=== PATIENT | female | born 1975 | race Two or more races ===

== ENCOUNTER 2016-11-01 20:33 | Emergency (ER) | payer SELFPAY ==
[2016-11-01] MEDS ORDERED: KETOROLAC TROMETHAMINE 60 MG/2 ML SDV IM ONE (20:52)
[2016-11-01] MEDS ORDERED: OXYCODONE-ACETAMINOPHEN 5-325 MG TABLET PO ONE (21:08)
--- NOTE | 2016-11-01 21:10 | ER Document Report ---
ED General - General Chief Complaint: Abdominal Pain Stated Complaint: ABDOMINAL PAIN Notes: Patient is a 41-year-old female with past medical history of chronic abdominal pain secondary to endometriosis who presents with requests for pain control. Patient states that she has daily lower abdominal pain that is unchanged today. States that it got worse over the last 3 days but admits that this is a typical episode of abdominal pain for her. She does describe as a cramping, stabbing pain in the lower abdomen. She has been trying Tylenol and ibuprofen without improvement of the pain. Nothing worsens the pain. She denies any associated fever, nausea, vomiting, diarrhea, vaginal bleeding or discharge. States she normally follows with Dr. Casey [employer] regarding her chronic endometriosis and that hormone therapy has not resolved her symptoms. States that she normally takes Percocet or [place] for this pain and could not get anymore because her doctors offices close as it is a weekend. Review of the [place] controlled substance database does show the patient regularly receives prescriptions for both narcotic medications as well as Xanax. TRAVEL OUTSIDE OF THE [place] IN LAST 30 DAYS: No - Related Data Allergies/Adverse Reactions: prednisone Allergy (Verified 11/01/16 20:36) Tachycardia Past Medical History - General Information source: Patient - Social History Smoking Status: Never Smoker Frequency of alcohol use: None Drug Abuse: None Lives with: Spouse/Significant other Family History: Arthritis, Hypertension, Malignancy Patient has suicidal ideation: No Patient has homicidal ideation: No - Past Medical History Cardiac Medical History: Denies: Hx Coronary Artery Disease, Hx Heart Attack, Hx Hypertension Pulmonary Medical History: Reports: Hx Pneumonia - CHILD Denies: Hx Asthma, Hx Bronchitis, Hx COPD Neurological Medical History: Denies: Hx Cerebrovascular Accident, Hx Seizures Endocrine Medical History: Reports: Hx Diabetes Mellitus Type 2 Renal/ Medical History: Reports: Hx Ovarian Cysts Musculoskeltal Medical History: Denies Hx Arthritis Psychiatric Medical History: Reports: Hx Anxiety Past Surgical History: Reports: Hx Gynecologic Surgery - Cyst from ovary removed twice - Immunizations Immunizations up to date: Yes Hx Diphtheria, Pertussis, Tetanus Vaccination: Yes Review of Systems - Review of Systems Notes: Constitutional: Negative for fever. HENT: Negative for sore throat. Eyes: Negative for visual changes. Cardiovascular: Negative for chest pain. Respiratory: Negative for shortness of breath. Gastrointestinal: Positive for abdominal pain, negative for vomiting or diarrhea Genitourinary: Negative for dysuria. Musculoskeletal: Negative for back pain. Skin: Negative for rash. Neurological: Negative for headaches, weakness or numbness. 10 point ROS negative except as marked above and in HPI. Physical Exam - Vital signs Vitals: Temp Pulse Resp BP Pulse Ox 97.6 F 88 18 126/63 H 96 11/01/16 20:42 11/01/16 20:42 11/01/16 20:42 11/01/16 20:42 11/01/16 20:42 Interpretation: Normal Notes: PHYSICAL EXAMINATION: GENERAL: Well-appearing, well-nourished and in no acute distress. HEAD: Atraumatic, normocephalic. EYES: Pupils equal round and reactive to light, extraocular movements intact, sclera anicteric, conjunctiva are normal. ENT: nares patent, oropharynx clear without exudates. Moist mucous membranes. NECK: Normal range of motion, supple without lymphadenopathy LUNGS: Breath sounds clear to auscultation bilaterally and equal. No wheezes rales or rhonchi. HEART: Regular rate and rhythm without murmurs ABDOMEN: Soft, nontender, normoactive bowel sounds. No guarding, no rebound. No masses appreciated. EXTREMITIES: Normal range of motion, no pitting or edema. No cyanosis. NEUROLOGICAL: No focal neurological deficits. Moves all extremities spontaneously and on command. PSYCH: Normal mood, normal affect. SKIN: Warm, Dry, normal turgor, no rashes or lesions noted. Course - Re-evaluation Re-evalutation: 11/01/16 22:52 Patient presents with chronic unchanged abdominal pain. Patient admits that she has daily abdominal pain and that this is no different than prior episodes. There is no focal tenderness on examination. Vitals are within normal limits. No constitutional symptoms. Patient is requesting narcotic pain medications for her chronic pain. I do not believe based on exam and history that any labs or imaging are indicated as patient herself admits that there is nothing new or different about this pain today versus the last several years. I do not suspect acute appendicitis, ovarian torsion, tubo-ovarian abscess, bowel obstruction, mesenteric ischemia, or acute cholecystitis based on exam and history. I've inform the patient about our chronic pain policy in the emergency department and encouraged her to follow-up with her primary care physician for her pain control needs. At this time will discharge with return precautions and follow-up recommendations. Verbal discharge instructions given a the bedside and opportunity for questions given. Medication warnings reviewed. Patient is in agreement with this plan and has verbalized understanding of return precautions and the need for primary care follow-up in the next 24-72 hours. - Vital Signs Vital signs: Temp Pulse Resp BP Pulse Ox 97.5 F 80 14 122/74 96 11/01/16 21:31 11/01/16 21:31 11/01/16 21:31 11/01/16 21:31 11/01/16 21:31 Discharge - Discharge Clinical Impression: Chronic abdominal pain Condition: Good Disposition: HOME, SELF-CARE Additional Instructions: You have been seen in the Emergency Department (ED) for abdominal pain. Please follow up with your doctor as soon as possible regarding today's emergent visit and the symptoms that are bothering you. Return to the ED if your abdominal pain worsens or fails to improve, you develop bloody vomiting, bloody diarrhea, you are unable to tolerate fluids due to vomiting, fever greater than 101, or other symptoms that concern you. Chronic Pain Control Stress, inactivity, and depression make pain more severe regardless of the cause of the pain. Stress and poor physical condition can cause pain such as headaches and backache. Relaxation: Rest in a quiet place with your eyes closed for 20 minutes twice daily. Concentrate on a pleasant image, or simply "feel" your breathing. Clear your mind. Stress management: Deal with your "stressors." Either take action, or eliminate the stressor from your life. Don't let things hang over you. Accept those things you can't change. Nutrition: Eat small, balanced meals -- don't skip, don't overeat. Meals should be high-carbohydrate, low-sugar, low-fat. Exercise: Exercise helps painful conditions and eases stress. Get 30 minutes of moderate exercise, five days a week. Do an activity that does not flare your pain. Precautions: Pain which continues to disrupt daily activities, or which changes in nature, requires a medical evaluation. Pain Clinic referral is available. We do not manage chronic pain in the Emergency Department. 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 We do not provide repeated medication management of chronic painful conditions. If you wish, we can provide the name of local pain management physicians. Referrals: TAQUERIA GATES MD [Primary Care Provider] - Follow up as needed
[2016-11-01 21:37] VITALS: BP 122/74
== END 2016-11-01 21:40 | disposition home or self-care (01) ==
LOC: ER 20:33
DX: G89.29 Other chronic pain (principal); R10.9 Unspecified abdominal pain; E11.9 Type 2 diabetes mellitus without complications
CPT/HCPCS: 99284; 96372; J1885

== ENCOUNTER 2016-11-16 11:40 | Emergency (ER) | payer SELFPAY ==
[2016-11-16] MEDS ORDERED: HYDROCODONE/ACETAMINOPHEN 5-325 MG TABLET PO ONE (12:20)
[2016-11-16] MEDS ORDERED: NAPROXEN 250 MG TABLET PO ONE (12:21)
--- NOTE | 2016-11-16 12:25 | ER Document Report ---
ED Medical Screen (RME) - General Stated Complaint: BACK PAIN Mode of Arrival: Ambulatory Information source: Patient Notes: 41 y/o F presents to ED c/o lower back pain since yesterday. States was doing dishes when she turned and pain began. Denies fever, urinary s/s, or lower extremity weakness. TRAVEL OUTSIDE OF THE [place] IN LAST 30 DAYS: No - Related Data Allergies/Adverse Reactions: prednisone Allergy (Verified 11/01/16 20:36) Tachycardia Past Medical History - Social History Frequency of alcohol use: None Drug Abuse: None Family history: None - Past Medical History Cardiac Medical History: Denies: Hx Coronary Artery Disease, Hx Heart Attack, Hx Hypertension Pulmonary Medical History: Reports: Hx Pneumonia - CHILD Denies: Hx Asthma, Hx Bronchitis, Hx COPD Neurological Medical History: Denies: Hx Cerebrovascular Accident, Hx Seizures Endocrine Medical History: Reports: Hx Diabetes Mellitus Type 2 Renal/ Medical History: Reports: Hx Ovarian Cysts. Denies: Hx Peritoneal Dialysis Musculoskeltal Medical History: Denies Hx Arthritis Psychiatric Medical History: Reports: Hx Anxiety Past Surgical History: Reports: Hx Gynecologic Surgery - Cyst from ovary removed twice - Immunizations Immunizations up to date: Yes Hx Diphtheria, Pertussis, Tetanus Vaccination: Yes Physical Exam - Vital signs Vitals: Temp Pulse Resp BP Pulse Ox 97.3 F 82 24 H 136/80 H 100 11/16/16 12:16 11/16/16 12:16 11/16/16 12:16 11/16/16 12:16 11/16/16 12:16 - General General appearance: Appears well, Alert In distress: None - Respiratory Respiratory status: No respiratory distress Course - Vital Signs Vital signs: Temp Pulse Resp BP Pulse Ox 97.3 F 82 24 H 136/80 H 100 11/16/16 12:16 11/16/16 12:16 11/16/16 12:16 11/16/16 12:16 11/16/16 12:16
[2016-11-16 12:51] LABS: APPEARANCE,URINE SLIGHTLY-CLOUDY; BILIRUBIN,URINE NEGATIVE (NEGATIVE); GLUCOSE, URINE NEGATIVE (NEGATIVE); KETONES,URINE NEGATIVE (NEGATIVE); LEUKOCYTE ESTERASE,URINE LARGE (NEGATIVE); NITRITE,URINE NEGATIVE (NEGATIVE); PROTEIN,URINE NEGATIVE (NEGATIVE); URINE SPECIFIC GRAVITY 1.019; UROBILINOGEN,URINE NEGATIVE mg/dL (<2.0)
--- NOTE | 2016-11-16 13:15 | ER Document Report ---
ED Neck/Back Problem - General Chief Complaint: Back Pain Stated Complaint: BACK PAIN Mode of Arrival: Wheelchair Information source: Patient, Relative TRAVEL OUTSIDE OF THE [place] 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 Recent injury: Possibly Associated symptoms: Numbness/tingling - R.U.E., Lower back pain. denies: Chills, Fever, Incontinence, Motor loss, Radiation to leg, Unable to urinate Exacerbated by: Movement of trunk - EVEN SLIGHT MOVEMENT OF LOWER BACK Relieved by: Remaining still Similar symptoms previously: Yes - PREVIOUSLY, ALWAYS RESOLVED IN FEW MINUTES Recently seen / treated by doctor: No - Related Data Allergies/Adverse Reactions: prednisone Allergy (Verified 11/01/16 20:36) Tachycardia Past Medical History - General Information source: Patient - Social History Smoking Status: Never Smoker Frequency of alcohol use: None Drug Abuse: None Lives with: Spouse/Significant other Family History: Arthritis, Hypertension, Malignancy, Thyroid Disfunction Patient has suicidal ideation: No Patient has homicidal ideation: No - Past Medical History Cardiac Medical History: Denies: Hx Coronary Artery Disease, Hx Heart Attack, Hx Hypertension Pulmonary Medical History: Reports: Hx Pneumonia - CHILD Denies: Hx Asthma, Hx Bronchitis, Hx COPD Neurological Medical History: Denies: Hx Cerebrovascular Accident, Hx Seizures Endocrine Medical History: Reports: Hx Diabetes Mellitus Type 2 Renal/ Medical History: Reports: Hx Ovarian Cysts, Other - RETROGRADE MENSTRUATION, ENDOMETRIOSIS. Denies: Hx Peritoneal Dialysis GI Medical History: Reports: None Musculoskeltal Medical History: Reports None, Denies Hx Arthritis Psychiatric Medical History: Reports: Hx Anxiety Past Surgical History: Reports: Hx Gynecologic Surgery - Cyst from ovary removed twice - Immunizations Immunizations up to date: Yes Hx Diphtheria, Pertussis, Tetanus Vaccination: Yes Review of Systems - Review of Systems Constitutional: No symptoms reported EENT: No symptoms reported Cardiovascular: No symptoms reported Respiratory: No symptoms reported Gastrointestinal: No symptoms reported Genitourinary: No symptoms reported. denies: Incontinence, Retention Female Genitourinary: No symptoms reported Musculoskeletal: See HPI Skin: No symptoms reported Neurological/Psychological: No symptoms reported Physical Exam - Vital signs Vitals: Temp Pulse Resp BP Pulse Ox 97.3 F 82 24 H 136/80 H 100 11/16/16 12:16 11/16/16 12:16 11/16/16 12:16 11/16/16 12:16 11/16/16 12:16 Interpretation: Tachypneic. No: Hypertensive, Tachycardic, Febrile - General General appearance: Appears well, Alert In distress: None Notes: DOES APPEAR MILDLY UNCOMFORTABLE. - HEENT Head: Normocephalic Eyes: Normal Conjunctiva: Normal Ears: Normal Nasal: Normal Mouth/Lips: Normal Mucous membranes: Normal Neck: Normal - Respiratory Respiratory status: No respiratory distress - Cardiovascular Rhythm: Regular - Abdominal Inspection: Normal Distension: No distension - Back Back: Normal, Tender - OVER L3, L4. No: CVA tenderness - Extremities General upper extremity: Normal inspection General lower extremity: Normal inspection - Neurological Neuro grossly intact: Yes Cognition: Normal Orientation: AAOx4 - Psychological Associated symptoms: Normal affect, Normal mood - Skin Skin Temperature: Warm Skin Moisture: Dry Skin Color: Normal Skin Turgor: Elastic Course - Re-evaluation Re-evalutation: 11/16/16 15:31 Patient reports improvement in pain. Results of imaging studies discussed. Management strategies discussed. - Vital Signs Vital signs: Temp Pulse Resp BP Pulse Ox 97.3 F 82 24 H 136/80 H 100 11/16/16 12:16 11/16/16 12:16 11/16/16 12:16 11/16/16 12:16 11/16/16 12:16 - Laboratory Laboratory results interpreted by me: 11/16/16 12:38 Ur Leukocyte Esterase LARGE H Discharge - Discharge Clinical Impression: Low back strain Qualifiers: Encounter type: initial encounter Qualified Code(s): S39.012A - Strain of muscle, fascia and tendon of lower back, initial encounter Condition: Stable Disposition: HOME, SELF-CARE Instructions: Low Back Pain ([facility]), Muscle Strain ([facility]), Oral Narcotic Medication ([facility]), Ibuprofen (General) ([facility]), Muscle Relaxers ([facility]) Additional Instructions: REST, AVOID PAINFUL ACTIVITY. TAKE IBUPROFEN, 800 mg THREE TIMES A DAY. YOU MAY TAKE NORCO IF NEEDED FOR PAIN RELIEF. YOU MAY TAKE VALIUM FOR MUSCLE RELAXATION IF NEEDED. FOLLOW UP WITH YOUR PRIMARY CARE PROVIDER OR RETURN TO E.R. IF PROBLEMS, ANY TIME. Prescriptions: Hydrocodone/Acetaminophen [H[place] 5-325 mg Tablet] 1 tab PO Q4HP PRN #14 tablet PRN Reason: For Pain Diazepam [Valium 5 Mg Tablet] 5 mg PO Q8HP PRN #10 tablet PRN Reason: FOR MUSCLE RELAXATION Referrals: TAQUERIA GATES MD [Primary Care Provider] - Follow up as needed
[2016-11-16] MEDS ORDERED: HYDROXYZINE HCL INJ 50 MG/1 ML VIAL IM ONE (13:34)
[2016-11-16] MEDS ORDERED: HYDROMORPHONE HCL INJ/PF 2 MG/ML AMPULE IM ONE (13:34)
[2016-11-16 15:43] VITALS: BP 115/73
== END 2016-11-16 15:50 | disposition home or self-care (01) ==
LOC: ER 11:40
DX: S39.012A Strain of muscle, fascia and tendon of lower back, initial encounter (principal); X50.0XXA Overexertion from strenuous movement or load, initial encounter; Y93.G1 Activity, food preparation and clean up; E11.9 Type 2 diabetes mellitus without complications; R06.82 Tachypnea, not elsewhere classified; Z88.8 Allergy status to other drugs, medicaments and biological substances
CPT/HCPCS: 99283; 96372; 81025; 81001; 72110; J3490; J1170

== ENCOUNTER 2017-05-05 20:47 | Emergency (ER) | payer MEDICAID ==
[2017-05-05 21:32] LABS: APPEARANCE,URINE CLEAR; BILIRUBIN,URINE NEGATIVE (NEGATIVE); GLUCOSE, URINE NEGATIVE (NEGATIVE); KETONES,URINE NEGATIVE (NEGATIVE); LEUKOCYTE ESTERASE,URINE NEGATIVE (NEGATIVE); NITRITE,URINE NEGATIVE (NEGATIVE); PROTEIN,URINE NEGATIVE (NEGATIVE); URINE SPECIFIC GRAVITY 1.009; UROBILINOGEN,URINE NEGATIVE mg/dL (<2.0)
[2017-05-05 21:37] LABS: ABSOLUTE EOSINOPHILS # (AUTO) 0.2 10^3/uL (0.0-0.6); ABSOLUTE LYMPHOCYTES (AUTO) 3.4 10^3/uL (0.5-4.7); ABSOLUTE MONOCYTES (AUTO) 0.6 10^3/uL (0.1-1.4); ABSOLUTE NEUT (AUTO) 7.1 10^3/uL (1.7-8.2); BASOPHILS % (AUTO) 0.4 % (0-2); EOSINOPHILS % (AUTO) 1.8 % (0-6); HEMATOCRIT 42.3 % (36.0-47.0); HEMOGLOBIN 13.9 g/dL (12.0-15.5); HGB HCT DIFFERENCE -0.6; LYMPHOCYTES % (AUTO) 30.1 % (13-45); MEAN CORPUSCULAR HEMOGLOBIN 27.8 pg (27.0-33.4); MEAN CORPUSCULAR HGB CONC 32.9 g/dL (32.0-36.0); MEAN CORPUSCULAR VOLUME 84 fl (80-97); RED BLOOD COUNT 5.02 10^6/uL (3.72-5.28); RED CELL DISTRIBUTION WIDTH 13.1 % (11.5-14.0); SEGMENTED NEUTROPHILS % (AUTO) 62.7 % (42-78); WHITE BLOOD COUNT 11.3 10^3/uL (4.0-10.5)
[2017-05-05 21:56] LABS: ALANINE AMINOTRANSFERASE 36 U/L (9-52); ALBUMIN 4.6 g/dL (3.5-5.0); ALKALINE PHOSPHATASE 78 U/L (38-126); ANION GAP 15 (5-19); ASPARTATE AMINO TRANSFERASE 28 U/L (14-36); BILIRUBIN,DIRECT 0.4 mg/dL (0.0-0.4); BILIRUBIN,TOTAL 0.4 mg/dL (0.2-1.3); BLOOD UREA NITROGEN 11 mg/dL (7-20); CALCIUM 9.3 mg/dL (8.4-10.2); CARBON DIOXIDE 21 mmol/L (22-30); CHLORIDE 105 mmol/L (98-107); CREATININE RESULT 0.51 mg/dL (0.52-1.25); GLUCOSE 115 mg/dL (75-110); POTASSIUM 4.3 mmol/L (3.6-5.0); SODIUM 140.9 mmol/L (137-145); TOTAL PROTEIN 7.7 g/dL (6.3-8.2)
[2017-05-05] MEDS ORDERED: DIPHENHYDRAMINE HCL 50 MG/ML VIAL IV ONE (22:28)
[2017-05-05] MEDS ORDERED: METOCLOPRAMIDE HCL INJ/PF 10 MG/2 ML SDV IV ONE (22:28)
--- NOTE | 2017-05-05 22:30 | ER Document Report ---
ED Medical Screen (RME) - General Chief Complaint: Dizziness Stated Complaint: ABDOMINAL PAIN Time Seen by Provider: 05/05/17 22:27 Notes: 41-year-old female, has 2 complaints, first is pain in her left pelvic/abdomen that is worse and now constant, has had a hx of ovarian cysts, pending OBGYN followup in 6 days. Second is a now constant headache, headaches started when she began Lupron for cysts, states it is worse now and causes her nausea and she is also dizzy feeling. Denies fever or injury. TRAVEL OUTSIDE OF THE [place] IN LAST 30 DAYS: No - Related Data Allergies/Adverse Reactions: prednisone Allergy (Verified 05/05/17 21:03) Tachycardia Past Medical History - Social History Family history: None - Past Medical History Cardiac Medical History: Denies: Hx Coronary Artery Disease, Hx Heart Attack, Hx Hypertension Pulmonary Medical History: Reports: Hx Pneumonia - CHILD Denies: Hx Asthma, Hx Bronchitis, Hx COPD Neurological Medical History: Denies: Hx Cerebrovascular Accident, Hx Seizures Endocrine Medical History: Reports: Hx Diabetes Mellitus Type 2 Renal/ Medical History: Reports: Hx Ovarian Cysts. Denies: Hx Peritoneal Dialysis Musculoskeltal Medical History: Denies Hx Arthritis Psychiatric Medical History: Reports: Hx Anxiety Past Surgical History: Reports: Hx Gynecologic Surgery - Cyst from ovary removed twice - Immunizations Immunizations up to date: Yes Hx Diphtheria, Pertussis, Tetanus Vaccination: Yes Physical Exam - Vital signs Vitals: Temp Pulse Resp BP Pulse Ox 98.4 F 79 18 133/89 H 98 05/05/17 21:04 05/05/17 21:04 05/05/17 21:04 05/05/17 21:04 05/05/17 21:04 - General General appearance: Appears well In distress: None - Abdominal Tenderness: Tender - mid to lower abdomen generally, worse on left Course - Re-evaluation Re-evalutation: 05/05/17 22:30 I have greeted and performed a rapid initial assessment of this patient. A comprehensive ED assessment and evaluation of the patient, analysis of test results and completion of the medical decision making process will be conducted by additional ED providers. - Vital Signs Vital signs: Temp Pulse Resp BP Pulse Ox 98.4 F 79 18 133/89 H 98 05/05/17 21:04 05/05/17 21:04 05/05/17 21:04 05/05/17 21:04 05/05/17 21:04 - Laboratory Result Diagrams: 05/05/17 21:15 05/05/17 21:15 Laboratory results interpreted by me: 05/05/17 05/05/17 21:15 21:15 WBC 11.3 H Carbon Dioxide 21 L Creatinine 0.51 L Glucose 115 H
--- NOTE | 2017-05-06 00:49 | ER Document Report ---
ED General - General Mode of Arrival: Ambulatory Information source: Patient TRAVEL OUTSIDE OF THE [place] IN LAST 30 DAYS: No - HPI Onset: Other - Refer to HPI notes Similar symptoms previously: Yes Recently seen / treated by doctor: No <PROSPER WALDEN - Last Filed: 05/06/17 04:07> <[email or web address] - Last Filed: 05/06/17 06:32> - General Chief Complaint: Dizziness Stated Complaint: ABDOMINAL PAIN Time Seen by Provider: 05/05/17 22:27 Notes: Patient is a 41-year-old female presenting to the emergency department for left pelvic pain and headache. Patient has a history of ovarian cysts and started taking Lupron about 1 year ago for such. Patient believes that this is the cause of her headaches which come with nausea and dizziness. Patient has had headache and abdominal pain x 1 month. Patient states that she is also been falling asleep while doing things such as driving and has not been able to sleep at night. Patient states she feels like her head is "burning up" and she has been using cold compresses and cold showers for this. Patient also has hyperthyroidism, diabetes mellitus, and endometriosis. Patient is unsure when she last had her thyroid levels checked. Patient's CHUTE BUILDER is Dr. Casey with [facility]. Patient has an appointment with Dr. Casey on 05/11/2017. (PROSPER WALDEN) - Related Data Allergies/Adverse Reactions: prednisone Allergy (Verified 05/05/17 21:03) Tachycardia Past Medical History - General Information source: Patient - Social History Smoking Status: Never Smoker Cigarette use (# per day): No Chew tobacco use (# tins/day): No Smoking Education Provided: No Frequency of alcohol use: None Drug Abuse: None Family History: Arthritis, Hypertension, Malignancy, Thyroid Disfunction Patient has suicidal ideation: No Patient has homicidal ideation: No Pulmonary Medical History: Reports: Hx Pneumonia - CHILD Endocrine Medical History: Reports: Hx Diabetes Mellitus Type 2, Hx Hyperthyroidism Renal/ Medical History: Reports: Hx Ovarian Cysts Psychiatric Medical History: Reports: Hx Anxiety Past Surgical History: Reports: Hx Gynecologic Surgery - Cyst from ovary removed twice - Immunizations Immunizations up to date: Yes Hx Diphtheria, Pertussis, Tetanus Vaccination: Yes <PROSPER WALDEN - Last Filed: 05/06/17 04:07> Review of Systems - Review of Systems Constitutional: No symptoms reported EENT: No symptoms reported Cardiovascular: See HPI, Dizziness Respiratory: No symptoms reported Gastrointestinal: See HPI, Abdominal pain, Nausea Genitourinary: No symptoms reported Female Genitourinary: See HPI Musculoskeletal: No symptoms reported Skin: No symptoms reported Hematologic/Lymphatic: No symptoms reported Neurological/Psychological: See HPI, Headaches -: Yes All other systems reviewed and negative <PROSPER WALDEN - Last Filed: 05/06/17 04:07> Physical Exam - Vital signs Interpretation: Normal <PROSPER WALDEN - Last Filed: 05/06/17 04:07> <PARMINDER REESE - Last Filed: 05/06/17 06:32> - Vital signs Vitals: Temp Pulse Resp BP Pulse Ox 98.4 F 79 18 133/89 H 98 05/05/17 21:04 05/05/17 21:04 05/05/17 21:04 05/05/17 21:04 05/05/17 21:04 - Notes Notes: GENERAL: Alert, interacts well. Patient gets dizzy when sitting up and laying back down in the bed during exam. No acute distress. HEAD: Normocephalic, atraumatic. EYES: Pupils equal, round, and reactive to light. Extraocular movements intact. ENT: Oral mucosa moist, tongue midline. NECK: Full range of motion. Supple. Trachea midline. LUNGS: Clear to auscultation bilaterally, no wheezes, rales, or rhonchi. No respiratory distress. HEART: Mild tachycardia. Regular rhythm. No murmurs, gallops, or rubs. ABDOMEN: Soft, non-tender. Non-distended. Bowel sounds present in all 4 quadrants. EXTREMITIES: Moves all 4 extremities spontaneously. No edema. No cyanosis. NEUROLOGICAL: Alert and oriented x3. Normal speech. PSYCH: Normal affect, normal mood. SKIN: Warm, dry, normal turgor. No rashes or lesions noted. (PROSPER WALDEN) Course - Laboratory Result Diagrams: 05/05/17 21:15 05/05/17 21:15 <PROSPER WALDEN - Last Filed: 05/06/17 04:07> - Laboratory Result Diagrams: 05/05/17 21:15 05/05/17 21:15 <PARMINDER REESE - Last Filed: 05/06/17 06:32> - Re-evaluation Re-evalutation: 05/06/17 03:35 CBC shows mild leukocytosis of 11.3, CMP shows slightly low CO2 at 21, patient was hydrated with a liter of normal saline, TSH normal at 2.9, free T4 slightly low at 0.73, free T3 normal at 4.14. Urinalysis unremarkable, test negative, transvaginal ultrasound shows 2.1 cm hypoechoic mass on the left ovary consistent with corpus luteum cyst versus hemorrhagic cyst. 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 I suspect some of her symptoms are coming from hormonal imbalance or possibly side effects from the norethindrone and the Lupron wearing off. Patient will be discharged home. 05/06/17 03:38 No evidence of torsion, no indication for emergent surgery. (PARMINDER REESE) - Vital Signs Vital signs: Temp Pulse Resp BP Pulse Ox 98.5 F 66 17 107/61 98 05/06/17 04:00 05/06/17 04:00 05/06/17 04:00 05/06/17 04:00 05/06/17 04:00 - Laboratory Laboratory results interpreted by me: 05/05/17 05/05/17 05/05/17 21:15 21:15 21:15 WBC 11.3 H Carbon Dioxide 21 L Creatinine 0.51 L Glucose 115 H Free T4 0.73 L Discharge <PROSPER WALDEN - Last Filed: 05/06/17 04:07> <PARMINDER REESE - Last Filed: 05/06/17 06:32> - Discharge Clinical Impression: Left ovarian cyst, Palpitations, Hyperthyroidism Headache Qualifiers: Headache type: unspecified Headache chronicity pattern: chronic headache Intractability: not intractable Qualified Code(s): R51 - Headache Condition: Stable Disposition: HOME, SELF-CARE Additional Instructions: Please follow-up with your [employer] regarding your daily headaches and her left lower quadrant abdominal pain. I suspect some of this is coming from your Lupron wearing off. Your transvaginal ultrasound showed a 2.1 cm cyst on your left ovary. Today your thyroid function was very close to normal however your T4 was slightly low at 0.73. Scribe Attestation: 05/06/17 06:32 I personally performed the services described in the documentation, reviewed and edited the documentation which was dictated to the scribe in my presence, and it accurately records my words and actions. (PARMINDER REESE) Scribe Documentation - Scribe Written by Kait:: Kait Quan, 05/06/2017 4:12 acting as scribe for :: Veronica <PROSPER WALDEN - Last Filed: 05/06/17 04:07>
[2017-05-06 01:29] LABS: FREE T3 4.14 pg/mL (2.77-5.27)
[2017-05-06 01:43] LABS: THYROID STIMULATING HORMONE 2.89 uIU/mL (0.47-4.68)
[2017-05-06] MEDS ORDERED: NORMAL SALINE 1000 ML 1,000 ML IV ONE (01:43)
--- NOTE | 2017-05-06 01:48 | RADIOLOGY REPORT (SQ) ---
EXAM DESCRIPTION: U/S NON OB PEL TV W/DOPPLER COMPLETED DATE/TIME: 05/06/2017 1:26 am REASON FOR STUDY: Left pelvic pain COMPARISON: Pelvic ultrasound 05/27/2016, 02/18/2016, 11/10/2015. TECHNIQUE: Grayscale images acquired of the pelvis via transvaginal approach and recorded on PACS. A dditional selected color Doppler and spectral images recorded. LIMITATIONS: None. FINDINGS: UTERUS: Measures 7.2 x 6.0 x 3.8 cm. No focal myometrial mass was identified. ENDOMETRIAL STRIPE: Measures 11 mm in double wall thickness. CERVIX: Measures 2.4 cm in length. Trace fluid was noted in the endocervical canal. Nabothian cysts are present. RIGHT OVARY: Measures 4.8 x 2.8 x 2.8 cm. Flow by Doppler was shown to the right ovary. LEFT OVARY: Measures 3.9 x 2.4 x 2.6 cm. Flow by Doppler was shown to the left ovary. There is a 2. 1 x 1.3 x 1.7 cm hypoechoic area at the left ovary. FREE FLUID: Trace free fluid was noted in the posterior cul-de-sac. IMPRESSION: 2.1 cm hypoechoic area at the left ovary, may represent a corpus luteum cyst or a hemorr hagic cyst. Trace fluid in the endocervical canal. Trace free pelvic fluid. TECHNICAL DOCUMENTATION: JOB ID: [id number] [employer]- All Rights Reserved
[2017-05-06 04:00] VITALS: BP 107/61
== END 2017-05-06 04:00 | disposition home or self-care (01) ==
LOC: ER 20:47
DX: N83.202 Unspecified ovarian cyst, left side (principal); R00.2 Palpitations; R10.9 Unspecified abdominal pain; R51 Headache; E05.90 Thyrotoxicosis, unspecified without thyrotoxic crisis or storm; R42 Dizziness and giddiness
CPT/HCPCS: 99284; 96361; 96374; 96375; 36415; 84439; 84443; 85025; 81025; 80053; 81001; 84481; 76830; 93976; J1200; J2765; J7030

== ENCOUNTER 2017-08-09 08:33 | Emergency (ER) | payer MEDICAID ==
[2017-08-09 08:39] VITALS: BP 142/85
--- NOTE | 2017-08-09 09:10 | ER Document Report ---
ED GI/ - General Chief Complaint: Abdominal Pain Stated Complaint: ABDOMINAL PAIN Time Seen by Provider: 08/09/17 09:10 TRAVEL OUTSIDE OF THE [place] IN LAST 30 DAYS: No - Related Data Allergies/Adverse Reactions: prednisone Allergy (Verified 08/09/17 08:35) Tachycardia Past Medical History - Social History Family History: Arthritis, Hypertension, Malignancy, Thyroid Disfunction - Past Medical History Cardiac Medical History: Denies: Hx Coronary Artery Disease, Hx Heart Attack, Hx Hypertension Pulmonary Medical History: Reports: Hx Pneumonia - CHILD Denies: Hx Asthma, Hx Bronchitis, Hx COPD Neurological Medical History: Denies: Hx Cerebrovascular Accident, Hx Seizures Endocrine Medical History: Reports: Hx Diabetes Mellitus Type 2, Hx Hyperthyroidism Renal/ Medical History: Reports: Hx Ovarian Cysts. Denies: Hx Peritoneal Dialysis Musculoskeltal Medical History: Denies Hx Arthritis Psychiatric Medical History: Reports: Hx Anxiety Past Surgical History: Reports: Hx Gynecologic Surgery - Cyst from ovary removed twice - Immunizations Immunizations up to date: Yes Hx Diphtheria, Pertussis, Tetanus Vaccination: Yes Physical Exam - Vital signs Vitals: Temp Pulse Resp BP Pulse Ox 97.4 F 88 16 142/85 H 97 08/09/17 08:35 08/09/17 08:35 08/09/17 08:35 08/09/17 08:35 08/09/17 08:35 Course - Vital Signs Vital signs: Temp Pulse Resp BP Pulse Ox 97.4 F 88 16 142/85 H 97 08/09/17 08:35 08/09/17 08:35 08/09/17 08:35 08/09/17 08:35 08/09/17 08:35
--- NOTE | 2017-08-09 09:22 | ER Document Report ---
ED Psych Disorder / Suicide - General Chief Complaint: Abdominal Pain Stated Complaint: ABDOMINAL PAIN Time Seen by Provider: 08/09/17 09:10 Mode of Arrival: Ambulatory Information source: Patient Notes: 42 yo female with insomnia for 4 months, panic attacks, excessive stress and anxiety due to divorce, excessive worrying. Here in ER with son who had seizure and is now discharged, checked into due to her anxiety at this time. "I am trying to be the best mom for my children" "I don't know what to do, I need something to relax". Tearful, repetative speech. PCP: Dr. Gates, he rec. psychiatrist, not seen yet. Alprzolam 1mg twice a day. "Can I also have something for this left abdominal pain too?" ([place] Controlled Substance System indcates that she gets monthly hydrocodone from Dr. Gates also, except he only prescribed 28 this past month instead of 60) Chronic pelvic pain from endometriosis. First she stated she had some Alprazolam at home, then stated she did not have any. TRAVEL OUTSIDE OF THE [place] IN LAST 30 DAYS: No - Related Data Allergies/Adverse Reactions: prednisone Allergy (Verified 08/09/17 08:35) Tachycardia Past Medical History - General Information source: Patient - Social History Smoking Status: Never Smoker Frequency of alcohol use: None Drug Abuse: None Lives with: Family Family History: Arthritis, Hypertension, Malignancy, Thyroid Disfunction Pulmonary Medical History: Reports: Hx Pneumonia - CHILD Endocrine Medical History: Reports: Hx Diabetes Mellitus Type 2, Hx Hyperthyroidism Renal/ Medical History: Reports: Hx Ovarian Cysts Psychiatric Medical History: Reports: Hx Anxiety, Hx Depression Past Surgical History: Reports: Hx Gynecologic Surgery - Cyst from ovary removed twice - Immunizations Immunizations up to date: Yes Hx Diphtheria, Pertussis, Tetanus Vaccination: Yes Review of Systems - Review of Systems Constitutional: No symptoms reported EENT: No symptoms reported Cardiovascular: No symptoms reported Respiratory: No symptoms reported Gastrointestinal: No symptoms reported Genitourinary: No symptoms reported Female Genitourinary: See HPI Musculoskeletal: No symptoms reported Skin: No symptoms reported Hematologic/Lymphatic: No symptoms reported Neurological/Psychological: See HPI Physical Exam - Vital signs Vitals: Temp Pulse Resp BP Pulse Ox 97.4 F 88 16 142/85 H 97 08/09/17 08:35 08/09/17 08:35 08/09/17 08:35 08/09/17 08:35 08/09/17 08:35 Interpretation: Normal - General General appearance: Appears well, Alert, Anxious - HEENT Head: Normocephalic, Atraumatic Eyes: Normal Conjunctiva: Normal Pupils: PERRL Pharynx: Normal Neck: Supple. No: Lymphadenopathy - Respiratory Respiratory status: No respiratory distress Chest status: Nontender Breath sounds: Normal Chest palpation: Normal - Cardiovascular Rhythm: Regular Heart sounds: Normal auscultation Murmur: No - Abdominal Inspection: Normal Distension: No distension - Extremities General upper extremity: Normal inspection, Nontender, Normal color, Normal ROM , Normal temperature General lower extremity: Normal inspection, Nontender, Normal color, Normal ROM , Normal temperature, Normal weight bearing. No: Xu's sign - Neurological Neuro grossly intact: Yes Cognition: Normal Orientation: AAOx4 [place] Coma Scale Eye Opening: Spontaneous [place] Coma Scale Verbal: Oriented [place] Coma Scale Motor: Obeys Commands [place] Coma Scale Total: 15 Speech: Normal Motor strength normal: LUE, RUE, LLE, RLE Sensory: Normal - Psychological Associated symptoms: Normal affect, Normal mood - Skin Skin Temperature: Warm Skin Moisture: Dry Skin Color: Normal Skin irregularity: negative: Rash Course - Re-evaluation Re-evalutation: 08/09/17 I spent 15 minutes seated with the pt as she vented about her stress and anxiety. She finally calmed and felt better. - Vital Signs Vital signs: Temp Pulse Resp BP Pulse Ox 97.4 F 88 16 142/85 H 97 08/09/17 08:35 08/09/17 08:35 08/09/17 08:35 08/09/17 08:35 08/09/17 08:35 Discharge - Discharge Clinical Impression: Anxiety, depression, Chronic abdominal pain Condition: Good Disposition: HOME, SELF-CARE Instructions: Anxiety ([facility]), Depression ([facility]), Endometriosis ([facility]) Additional Instructions: over the counter melatonin at night for sleep see dr. gates on thursday for further medications and suggestions seek counseling to help with the stress and anxiety return to er if you have any suicidal thoughts Referrals: TAQUERIA GATES MD [Primary Care Provider] - Follow up tomorrow
[2017-08-09] MEDS ORDERED: LORAZEPAM 1 MG TABLET PO ONE (09:27)
[2017-08-09] MEDS ORDERED: ACETAMINOPHEN 325 MG TABLET PO ONE (09:36)
[2017-08-09] MEDS ORDERED: IBUPROFEN 800 MG TABLET PO ONE (09:36)
== END 2017-08-09 09:53 | disposition home or self-care (01) ==
LOC: ER 08:33
DX: F41.9 Anxiety disorder, unspecified (principal); R10.9 Unspecified abdominal pain; F32.9 Major depressive disorder, single episode, unspecified; G89.29 Other chronic pain; G47.00 Insomnia, unspecified; F41.0 Panic disorder [episodic paroxysmal anxiety]; F43.9 Reaction to severe stress, unspecified
CPT/HCPCS: 99283; J3490 ×2

== ENCOUNTER → 2017-11-11 | Outpatient (CLI) | payer MEDICAID, OTHER ==
[2017-11-11 17:43] LABS: ALANINE AMINOTRANSFERASE 35 U/L (9-52); ALBUMIN 4.7 g/dL (3.5-5.0); ALKALINE PHOSPHATASE 68 U/L (38-126); ANION GAP 12 (5-19); ASPARTATE AMINO TRANSFERASE 26 U/L (14-36); BILIRUBIN,DIRECT 0.2 mg/dL (0.0-0.4); BILIRUBIN,TOTAL 0.2 mg/dL (0.2-1.3); BLOOD UREA NITROGEN 12 mg/dL (7-20); CALCIUM 9.9 mg/dL (8.4-10.2); CARBON DIOXIDE 26 mmol/L (22-30); CHLORIDE 101 mmol/L (98-107); GLUCOSE 133 mg/dL (75-110); LDH 375 U/L (313-618); SODIUM 139.4 mmol/L (137-145); TOTAL PROTEIN 7.4 g/dL (6.3-8.2); URIC ACID 3.8 mg/dL (2.5-7.0)
== END ==
LOC: LAB 16:48
PROVIDERS: ATTEND Nurse Practitioner Women's Health
DX: Z34.81 Encounter for supervision of other normal pregnancy, first trimester (principal)
CPT/HCPCS: 36415; 80053; 83615; 84550

== ENCOUNTER 2018-01-18 08:31 | Day surgery (SDC) | payer MEDICAID ==
[~2018-01-18 08:31] MED LIST: DEXAMETHASONE SOD PHOSPHATE INJ 4 MG/1 ML VIAL ONE; FENTANYL CITRATE INJ/PF 100 MCG/2 ML AMPUL ONE; LIDOCAINE 2% INJ-PF (20 MG/ML) 10 ML AMPUL ONE; MIDAZOLAM 2 MG/2 ML INJ ONE; ONDANSETRON HCL INJ/PF 4 MG/2 ML SDV ONE; PROPOFOL INJ 200 MG/20 ML VIAL IV ONE
[2018-01-18] MEDS ORDERED: DOXYCYCLINE HYCLATE 100 MG in DEXTROSE 5%-WATER 250 ML IV PRN (09:26)
[2018-01-18] MEDS ORDERED: DOXYCYCLINE HYCLATE INJ 100 MG VIAL IV PRN (09:30)
[2018-01-18 10:09] LABS: HEMATOCRIT 42.1 % (36.0-47.0); HEMOGLOBIN 14.2 g/dL (12.0-15.5); MEAN CORPUSCULAR HEMOGLOBIN 27.4 pg (27.0-33.4); MEAN CORPUSCULAR HGB CONC 33.7 g/dL (32.0-36.0); MEAN CORPUSCULAR VOLUME 81 fl (80-97); PLATELET COUNT 251 10^3/uL (150-450); RED BLOOD COUNT 5.19 10^6/uL (3.72-5.28); RED CELL DISTRIBUTION WIDTH 13.3 % (11.5-14.0)
[2018-01-18 10:12] LABS: APPEARANCE,URINE SLIGHTLY-CLOUDY; BILIRUBIN,URINE NEGATIVE (NEGATIVE); COLOR,URINE YELLOW; GLUCOSE, URINE NEGATIVE (NEGATIVE); KETONES,URINE NEGATIVE (NEGATIVE); LEUKOCYTE ESTERASE,URINE NEGATIVE (NEGATIVE); NITRITE,URINE NEGATIVE (NEGATIVE); PROTEIN,URINE NEGATIVE (NEGATIVE); URINE SPECIFIC GRAVITY 1.024; UROBILINOGEN,URINE NEGATIVE mg/dL (<2.0)
[2018-01-18] MEDS ORDERED: OXYTOCIN 10 UNIT/ML VIAL ONE (10:29)
[2018-01-18] MEDS ORDERED: FENTANYL CITRATE INJ/PF 100 MCG/2 ML AMPUL IV PRN ×6 (11:04→11:35)
[2018-01-18] MEDS ORDERED: OXYCODONE-ACETAMINOPHEN 5-325 MG TABLET PO PRN ×4 (11:04→11:35)
[2018-01-18] MEDS ORDERED: PROMETHAZINE HCL INJ 25 MG/1 ML VIAL IV PRN ×4 (11:04→11:35)
[2018-01-18] MEDS ORDERED: DIPHENHYDRAMINE HCL 50 MG/ML VIAL IV PRN ×2 (11:04→11:35)
[2018-01-18] MEDS ORDERED: MEPERIDINE HCL/PF INJ 25 MG/1 ML DISP.SYRIN IV PRN ×2 (11:04→11:35)
[2018-01-18] MEDS ORDERED: MORPHINE SULFATE 10 MG/ML INJ IV PRN ×2 (11:04→11:35)
--- NOTE | 2018-01-18 11:08 | OPERATIVE REPORT E ---
Operative Report NAME: ARTEM SCHMITT : 1975 AGE: 42Y DATE OF SURGERY: 01/18/2018 ROOM: PREOPERATIVE DIAGNOSIS: Incomplete AB. POSTOPERATIVE DIAGNOSIS: Incomplete AB. PROCEDURE: Suction D and C. SURGEON: Steve ORTEGA M.D. ESTIMATED BLOOD LOSS: Less than 20 mL. TISSUE REMOVED OR ALTERED: Products of conception. ANESTHESIA: LMAC. DESCRIPTION OF PROCEDURE: The patient was placed in the dorsal lithotomy position, prepped and draped in a sterile fashion. A speculum was placed. Cervix was visualized and grasped with a single-toothed tenaculum sounded to a depth of 9 cm. The os was already dilated to the point of *------* curved catheter. Curved suction catheter was placed with suction curettage *------* followed by sharp curettage for repeat suction. Single-toothed tenaculum was removed and hemostasis was noted. The patient tolerated it well and was taken to recovery in good condition. DICTATING PHYSICIAN: Steve ORTEGA M.D. [id number] PHY#: [id number] ID: [id number] JOB#: [id number] ACCT: [id number] cc:Steve ORTEGA M.D. >
[2018-01-18] MEDS ORDERED: KETOROLAC TROMETHAMINE INJ/PF 30 MG/1 ML SDV ONE (11:12)
[2018-01-18] MEDS ORDERED: KETOROLAC TROMETHAMINE 60 MG/2 ML SDV IM PRN (11:35)
[2018-01-18] MEDS ORDERED: OXYCODONE-ACETAMINOPHEN 5-325 MG TABLET ONE (11:45)
[2018-01-18 13:15] VITALS: BP 127/87
== END 2018-01-18 13:00 | disposition home or self-care (01) ==
LOC: OROUT 08:31
PROVIDERS: ATTEND Obstetrics & Gynecology Gynecology
DX: O02.1 Missed abortion (principal); E11.9 Type 2 diabetes mellitus without complications; E07.9 Disorder of thyroid, unspecified; R01.1 Cardiac murmur, unspecified; Z79.84 Long term (current) use of oral hypoglycemic drugs; Z79.899 Other long term (current) drug therapy; Z88.8 Allergy status to other drugs, medicaments and biological substances
CPT/HCPCS: 86900; 86901; 36415; 86850; 82947; 85027; 81001; 88305 ×2; 59820; J2790; J2250; J1100; J3490 ×2; J3010; J1885; J2405; J7060; J2704; 1965; J2590

== ENCOUNTER 2018-06-29 12:15 | Day surgery (SDC) | payer MEDICAID ==
[~2018-06-29 12:15] MED LIST changes: -DEXAMETHASONE SOD PHOSPHATE INJ 4 MG/1 ML VIAL ONE; +DIPHENHYDRAMINE HCL 50 MG/ML VIAL ONE; +EPINEPHRINE INJ 1 MG/10 ML DISP.SYRIN ONE; -FENTANYL CITRATE INJ/PF 100 MCG/2 ML AMPUL ONE; +FLUMAZENIL INJ 0.5 MG/5 ML VIAL ONE; +GLUCAGON,HUMAN RECOMB 1 MG INJ ONE; -LIDOCAINE 2% INJ-PF (20 MG/ML) 10 ML AMPUL ONE; -MIDAZOLAM 2 MG/2 ML INJ ONE; +NALOXONE HCL INJ/PF 0.4 MG/1 ML SDV ONE; -PROPOFOL INJ 200 MG/20 ML VIAL IV ONE
[2018-06-29] MEDS: MIDAZOLAM 2 MG/2 ML INJ ONE ×2 (12:50→12:54)
[2018-06-29] MEDS: FENTANYL CITRATE INJ/PF 100 MCG/2 ML AMPUL ONE ×2 (12:52→12:56)
--- NOTE | 2018-06-29 13:02 | Operative Report ---
Operative Report DATE OF SURGERY: 06/29/18 Operative Report: The risks benefits and alternatives of the procedure explained to the patient in detail and informed consent is obtained,a GIF Olympus video scope was inserted into the patient's mouth and hypopharynx ,the esophagus is identified intubated and insufflated ,the scope was then advanced through the esophagus stomach and duodenum, retroflexion maneuver is done, the esophagus stomach and first and second portions of the duodenum examined. PREOPERATIVE DIAGNOSIS: Epigastric pain rule out peptic ulcer disease POSTOPERATIVE DIAGNOSIS: Gastritis biopsy obtained. Duodenitis. Small sliding hiatal hernia OPERATION: EGD with biopsy SURGEON: JACQUES HAYNES ANESTHESIA: Moderate Sedation - 4 mg of Versed, 100 mcg of fentanyl. Conscious sedation monitoring time 30 minutes. TISSUE REMOVED OR ALTERED: As noted above. COMPLICATIONS: None. ESTIMATED BLOOD LOSS: None. INTRAOPERATIVE FINDINGS: As noted above. PROCEDURE: Patient tolerated the procedure well. No immediate postprocedure complications are noted. Patient discharged in good condition. Discharge date 06/29/2018. Discharge diet: Regular. Discharge activity: Regular. 2-3 week follow-up to discuss findings. Patient is instructed to call the office or proceed to the emergency room should there be any further problems or questions. Wait on the pathology.
[2018-06-29 14:05] VITALS: BP 116/68
== END 2018-06-29 14:05 | disposition home or self-care (01) ==
LOC: END 12:15
PROVIDERS: ATTEND Internal Medicine Gastroenterology
DX: K29.50 Unspecified chronic gastritis without bleeding (principal); K29.80 Duodenitis without bleeding; K44.9 Diaphragmatic hernia without obstruction or gangrene; E11.9 Type 2 diabetes mellitus without complications; E05.90 Thyrotoxicosis, unspecified without thyrotoxic crisis or storm; E28.2 Polycystic ovarian syndrome; K21.9 Gastro-esophageal reflux disease without esophagitis; E66.09 Other obesity due to excess calories; Z79.84 Long term (current) use of oral hypoglycemic drugs; Z79.899 Other long term (current) drug therapy; Z68.32 Body mass index [BMI] 32.0-32.9, adult
CPT/HCPCS: 43239; 82962; 88342 ×2; 88305 ×2; J2250; J3010; J0171; J1200; J1610; J2310; J2405; J3490

== ENCOUNTER → 2018-07-20 | Outpatient (CLI) | payer MEDICAID ==
--- NOTE | 2018-07-20 14:08 | RADIOLOGY REPORT (SQ) ---
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 TECHNIQUE: Dynamic and static grayscale images acquired of the localized site of clinical concern an d recorded on PACS. Additional selected color Doppler and spectral images recorded. SITE OF CONCERN: Left flank LIMITATIONS: None. FINDINGS: SKIN AND SUBCUTANEOUS TISSUES: Slightly thickened adipose tissue when compared to the righ t. DEEP SOFT TISSUES/MUSCLES: No masses. No fluid collections. No edema. VASCULAR: No increased or decreased vascularity. No occlusions. OTHER: No other significant finding. IMPRESSION: NO SOFT TISSUE MASS, FLUID COLLECTION, OR FOREIGN BODY. TECHNICAL DOCUMENTATION: JOB ID: [id number] [employer]- All Rights Reserved Reading location - IP/workstation name: [email or web address]
== END ==
LOC: RAD 13:58
PROVIDERS: ATTEND Family Medicine
DX: D17.1 Benign lipomatous neoplasm of skin and subcutaneous tissue of trunk (principal)
CPT/HCPCS: 76604

== ENCOUNTER → 2018-07-29 | Outpatient (CLI) | payer MEDICAID ==
--- NOTE | 2018-07-29 15:22 | RADIOLOGY REPORT (SQ) ---
EXAM DESCRIPTION: NM HIDA SCAN WITH CCK COMPLETED DATE/TIME: 07/29/2018 3:04 pm REASON FOR STUDY: R10.11 RIGHT UPPER QUADRANT PAIN R10.11 RIGHT UPPER QUADRANT PAIN COMPARISON: None. RADIONUCLIDE AND DOSE: DOSAGE RADIONUCLIDE: 5.3 millicuries Tc99m Mebrofenin. DOSAGE CCK: 1.7 micrograms. DOSAGE MORPHINE: Not required. The route of agent administration: Intravenous TECHNIQUE: Serial imaging right upper quadrant up to 60 minutes following injection of radionuclide. CCK injected after gallbladder visualized. LIMITATIONS: None. FINDINGS: LIVER: Normal visualization without areas of photopenia. INTRAHEPATIC BILE DUCTS: Normal visualization COMMON BILE DUCT: Normal visualization GALLBLADDER: Normal visualization. Calculated ejection fraction of 3%. Normal range is greater andres n 35%. PHYSICAL RESPONSE: Patients presenting complaint was reproduced. Nausea and right upper quadrant pa in reproduced by IV CCK. OTHER: No other significant finding. IMPRESSION: No scintigraphic evidence of cystic duct or common duct obstruction. Biliary dyskinesia, IV CCK reproduced the patient's symptoms. Gallbladder ejection fraction 3%. TECHNICAL DOCUMENTATION: JOB ID: [id number] [employer]- All Rights Reserved Reading location - IP/workstation name: [email or web address]
== END ==
LOC: RAD 15:21
PROVIDERS: ATTEND Family Medicine
DX: R10.11 Right upper quadrant pain (principal)
CPT/HCPCS: 78227; J2805; A9537; Q9969

== ENCOUNTER 2018-08-27 12:46 | Day surgery (SDC) | payer MEDICAID ==
[2018-08-24 11:32] LABS: HEMATOCRIT 41.4 % (36.0-47.0); MEAN CORPUSCULAR HEMOGLOBIN 26.9 pg (27.0-33.4); MEAN CORPUSCULAR HGB CONC 33.9 g/dL (32.0-36.0); MEAN CORPUSCULAR VOLUME 79 fl (80-97); PLATELET COUNT 228 10^3/uL (150-450); RED BLOOD COUNT 5.22 10^6/uL (3.72-5.28); RED CELL DISTRIBUTION WIDTH 13.3 % (11.5-14.0)
[2018-08-24 12:00] LABS: ALANINE AMINOTRANSFERASE 75 U/L (9-52); ALBUMIN 4.9 g/dL (3.5-5.0); ALKALINE PHOSPHATASE 111 U/L (38-126); ANION GAP 17 (5-19); ASPARTATE AMINO TRANSFERASE 53 U/L (14-36); BILIRUBIN,DIRECT 0.2 mg/dL (0.0-0.4); BILIRUBIN,TOTAL 0.4 mg/dL (0.2-1.3); BLOOD UREA NITROGEN 14 mg/dL (7-20); CALCIUM 9.6 mg/dL (8.4-10.2); CARBON DIOXIDE 26 mmol/L (22-30); CHLORIDE 100 mmol/L (98-107); GLUCOSE 191 mg/dL (75-110); POTASSIUM 4.8 mmol/L (3.6-5.0); SODIUM 143.4 mmol/L (137-145); TOTAL PROTEIN 8.5 g/dL (6.3-8.2)
[~2018-08-27 12:46] MED LIST changes: +ACETAMINOPHEN 325 MG TABLET PO PRN; +CEFOXITIN SODIUM 2 GM in DEXTROSE 5%-WATER 100 ML IV PRN; -DIPHENHYDRAMINE HCL 50 MG/ML VIAL ONE; -EPINEPHRINE INJ 1 MG/10 ML DISP.SYRIN ONE; -FLUMAZENIL INJ 0.5 MG/5 ML VIAL ONE; -GLUCAGON,HUMAN RECOMB 1 MG INJ ONE; +LACTATED RINGERS 1000 ML IV PRN; +LIDOCAINE 0.5% INJ-PF (5 MG/ML) 50 ML SDV SUBCUT PRN; +MIDAZOLAM 2 MG/2 ML INJ IV PRN; -NALOXONE HCL INJ/PF 0.4 MG/1 ML SDV ONE; -ONDANSETRON HCL INJ/PF 4 MG/2 ML SDV ONE; +ROCURONIUM BROMIDE INJ 50 MG/5 ML VIAL IV ONE; +SUCCINYLCHOLINE CHLORIDE INJ 200 MG/10 ML VIAL ONE
[2018-08-27] MEDS ORDERED: BUPIVACAINE HCL 0.5 % INJ/PF 30 ML SDV ONE (13:11)
[2018-08-27] MEDS ORDERED: FENTANYL CITRATE INJ/PF 100 MCG/2 ML AMPUL ONE (17:14)
[2018-08-27] MEDS ORDERED: MIDAZOLAM 2 MG/2 ML INJ ONE (17:14)
[2018-08-27] MEDS ORDERED: DEXAMETHASONE SOD PHOSPHATE INJ 4 MG/1 ML VIAL ONE (17:14)
[2018-08-27] MEDS ORDERED: ONDANSETRON HCL INJ/PF 4 MG/2 ML SDV ONE (17:14)
[2018-08-27] MEDS ORDERED: ACETAMINOPHEN 1,000 MG/100 ML RTUPB IV ONE (17:15)
[2018-08-27] MEDS ORDERED: PROPOFOL INJ 200 MG/20 ML VIAL IV ONE (17:15)
[2018-08-27] MEDS ORDERED: SUGAMMADEX SODIUM 200 MG/2 ML SDV IV ONE (17:18)
[2018-08-27] MEDS ORDERED: MEPERIDINE HCL/PF INJ 25 MG/1 ML DISP.SYRIN IV PRN (18:02)
[2018-08-27] MEDS ORDERED: MORPHINE SULFATE 10 MG/ML INJ IV PRN (18:02)
[2018-08-27] MEDS ORDERED: FENTANYL CITRATE INJ/PF 100 MCG/2 ML AMPUL IV PRN ×3 (18:02)
[2018-08-27] MEDS ORDERED: ONDANSETRON HCL INJ/PF 4 MG/2 ML SDV IV PRN (18:02)
[2018-08-27] MEDS ORDERED: DIPHENHYDRAMINE HCL 50 MG/ML VIAL IV PRN (18:02)
[2018-08-27] MEDS ORDERED: PROMETHAZINE HCL INJ 25 MG/1 ML VIAL IV PRN ×2 (18:02)
[2018-08-27] MEDS: FENTANYL CITRATE INJ/PF 100 MCG/2 ML AMPUL ONE ×2 (19:15→19:18)
[2018-08-27] MEDS: HYDROCODONE/ACETAMINOPHEN 10-325 MG TABLET PO PRN (23:34)
[2018-08-28] MEDS: HYDROCODONE/ACETAMINOPHEN 10-325 MG TABLET PO PRN (06:50)
[2018-08-28 08:46] VITALS: BP 124/84
--- NOTE | 2018-08-30 08:08 | Discharge Summary ---
Discharge Summary (SDC) - Discharge Final Diagnosis: Biliary dyskinesia Date of Surgery: 08/27/18 Discharge Date: 08/27/18 Condition: Stable Treatment or Instructions: Diet: As Tolerated OK to Shower in 48HRS NO TUB BATHS X 2 WEEKS Referrals: [facility] [Provider Group] (F/U 7-10 DAYS) Discharge Diet: As Tolerated Respiratory Treatments at Home: Deep Breathing/Coughing, Incentive Spirometer Discharge Activity: Balance Activity w/Rest, No Lifting Over 10 Pounds, No tub bath Home Care Assistance: None Needed Report the Following to Your Physician Immediately: Shortness of Breath, Nausea , Vomiting, Increase in Pain, Yellow Skin, Fever over 101 Degrees, Unusual Bleeding, Redness, Swelling, Warmth, Increased Soreness, Drainage-Yellow, Drainage-Green, Drainage-Foul Smelling
--- NOTE | 2018-08-30 08:11 | Operative Report ---
Nonrecallable Operative Report DATE OF SURGERY: 08/27/18 PREOPERATIVE DIAGNOSIS: Biliary dyskinesia POSTOPERATIVE DIAGNOSIS: Biliary dyskinesia OPERATION: Laparoscopic cholecystectomy SURGEON: LIANG ARCHULETA ANESTHESIA: GA TISSUE REMOVED OR ALTERED: Gallbladder COMPLICATIONS: None apparent ESTIMATED BLOOD LOSS: Minimal PROCEDURE: Drains/implants: None. Procedure in detail: After informed consent was obtained, the patient was brought into the operating room and laid in the supine position. The area of the abdomen was prepped and draped in a normal sterile fashion. A periumbilical incision was created using a 15 blade scalpel. Dissection was carried through the subcutaneous tissue using sharp and blunt means. The cicatrix was identified, grasped with a Jazmine clamp, and retracted upwards. The linea alba fascia was incised sharply. The abdomen was entered sharply. The balloon trocar was inserted, and pneumoperitoneum was achieved. A subxiphoid 5 mm port was placed under direct laparoscopic visualization. 2 more 5 mm ports were placed in the right upper quadrant in similar fashion. Atraumatic graspers were placed through the 5 mm ports. The gallbladder was retracted cephalad and laterally. Dissection was begun in the triangle of Calot. The cystic duct and cystic artery were fully visualized and skeletonized , seeing the liver through the triangle. Once the critical view of safety was obtained, the cystic duct and cystic artery were clipped and cut with laparoscopic instruments. The gallbladder was then removed from the liver using Bovie electrocautery. The gallbladder was grasped with a large clamp and pulled out through the umbilicus. The camera was then reinserted. The hilum was inspected. It was free of any leakage of blood or bile. Once this was confirmed, the 5 mm trochars were removed under direct laparoscopic visualization. The umbilical trocar was removed, and pneumoperitoneum was relieved. The umbilical fascia was closed using 0 Vicryl suture in [id number] fashion. The overlying skin was closed using 4-0 Vicryl Rapide suture in subcuticular fashion. All sponge, instrument, and needle counts were correct x2. Condition: Stable.
== END 2018-08-28 10:00 | disposition home or self-care (01) ==
LOC: OROUT 12:46 → 5 20:09 → OROUT 08-28 10:00
PROVIDERS: ATTEND Surgery
DX: K80.10 Calculus of gallbladder with chronic cholecystitis without obstruction (principal); E11.9 Type 2 diabetes mellitus without complications; E28.2 Polycystic ovarian syndrome; E05.90 Thyrotoxicosis, unspecified without thyrotoxic crisis or storm; R01.1 Cardiac murmur, unspecified; Z87.891 Personal history of nicotine dependence; Z79.84 Long term (current) use of oral hypoglycemic drugs
CPT/HCPCS: 36415; 82962; 85027; 81025; 80076; 80048; 88304 ×2; 47562; J2250; J3490 ×3; J1100; J0694; J3010; J0330; J2405; J2704; J0131; 790

== ENCOUNTER → 2018-09-06 | Outpatient (CLI) | payer MEDICAID ==
--- NOTE | 2018-09-06 16:59 | RADIOLOGY REPORT (SQ) ---
EXAM DESCRIPTION: CHEST PA/LATERAL COMPLETED DATE/TIME: 09/06/2018 4:42 pm REASON FOR STUDY: COUGH R05 COMPARISON: 02/23/2016 EXAM PARAMETERS: NUMBER OF VIEWS: two views TECHNIQUE: Digital Frontal and Lateral radiographic views of the chest acquired. RADIATION DOSE: NA LIMITATIONS: none FINDINGS: LUNGS AND PLEURA: No opacities, masses or pneumothorax. No pleural effusion. MEDIASTINUM AND HILAR STRUCTURES: No masses or contour abnormalities. HEART AND VASCULAR STRUCTURES: Heart normal size. No evidence for failure. BONES: No acute findings. HARDWARE: None in the chest. OTHER: No other significant finding. IMPRESSION: NO SIGNIFICANT RADIOGRAPHIC FINDING IN THE CHEST. TECHNICAL DOCUMENTATION: JOB ID: [id number] [employer]- All Rights Reserved Reading location - IP/workstation name: [email or web address]
== END ==
LOC: OD 16:28
PROVIDERS: ATTEND Family Medicine
DX: R05 Cough (principal)
CPT/HCPCS: 71046

== ENCOUNTER → 2018-09-07 | Outpatient (CLI) | payer MEDICAID ==
--- NOTE | 2018-09-07 17:30 | RADIOLOGY REPORT (SQ) ---
EXAM DESCRIPTION: CTA CHEST COMPLETED DATE/TIME: 09/07/2018 5:14 pm REASON FOR STUDY: R79.89 OTHER SPECIFIED ABNORMAL FINDINGS OF BLOOD CHEMISTRY R79.89 OTHER SPECIFIE D ABNORMAL FINDINGS OF BLOOD CHEMISTRY COMPARISON: None. TECHNIQUE: CT scan of the chest performed using helical scanning technique with dynamic intravenous contrast injection. Images reviewed with lung, soft tissue and bone windows. Reconstructed coronal and sagittal MPR images reviewed. Additional 3 dimensional post-processing performed to develop Maximal Intensity Projection images (NV P). All images stored on PACS. All CT scanners at this facility use dose modulation, iterative reconstruction, and/or weight based d osing when appropriate to reduce radiation dose to as low as reasonably achievable (ALARA). [facility]: Dose Right [facility]: CareDose [facility]: Dose Right [facility]: Teradose 4D [facility]: Verdezyne CONTRAST TYPE AND DOSE: contrast/concentration: Isovue 350.00 mg/ml; Total Contrast Delivered: 78.0 ml; Total Saline Delivered: 110.0 ml Contrast bolus optimized for the pulmonary arteries. Not diagnostic for the aorta. RENAL FUNCTION: Creatinine 0.6 RADIATION DOSE: CT Rad equipment meets quality standard of care and radiation dose reduction techniq ues were employed. CTDIvol: 14.9 - 33.1 mGy. DLP: 531 mGy-cm. . LIMITATIONS: None. FINDINGS: LUNGS AND PLEURA: No masses, infiltrates, or pneumothorax. No pleural effusions or pleura l calcifications. AORTA AND GREAT VESSELS: No aneurysm. Contrast bolus not optimized for the aorta. HEART: No pericardial effusion. No significant coronary artery calcifications. PULMONARY ARTERIES: No emboli visualized in the main pulmonary arteries or the segmental branches. HILAR AND MEDIASTINAL STRUCTURES: There is mild left hilar adenopathy. HARDWARE: None in the chest. UPPER ABDOMEN: No significant findings. Limited exam. THYROID AND OTHER SOFT TISSUES: No masses. No adenopathy. BONES: No acute or significant finding. 3D MIPS: Confirm above findings. OTHER: No other significant finding. IMPRESSION: 1. There is no evidence of pulmonary emboli. 2. Left hilar adenopathy. COMMENT: Quality ID # [id number]: Final reports with documentation of one or more dose reduction techniques (e.g., Automated exposure control, adjustment of the mA and/or kV according to patient size, use of iterative reconstruction technique) TECHNICAL DOCUMENTATION: JOB ID: [id number] [employer]- All Rights Reserved Reading location - IP/workstation name: [email or web address]
== END ==
LOC: RAD 16:50
PROVIDERS: ATTEND Family Medicine
DX: R79.89 Other specified abnormal findings of blood chemistry (principal)
CPT/HCPCS: 71275; 82565

== ENCOUNTER 2018-09-08 14:52 | Emergency (ER) | payer MEDICAID ==
[2018-09-08 14:58] VITALS: BP 126/64
[2018-09-08] MEDS ORDERED: KETOROLAC TROMETHAMINE 60 MG/2 ML SDV IM ONE (15:40)
--- NOTE | 2018-09-08 15:40 | ER Document Report ---
ED Medical Screen (RME) - General Chief Complaint: Abdominal Pain Stated Complaint: ABDOMINAL PAIN Time Seen by Provider: 09/08/18 15:37 Notes: 43 years old female postop 12 days, doing some home keeping such as mopping and folding washcloths suddenly felt sharp pain in the epigastrium to substernal region sat down and then started swelling of the abdomen and pain therefore present to the ED. This happened just prior to arrival. Pain is subsiding but still continuing to mild to moderate level. Associated with nausea no vomiting. She is currently on amoxicillin and cough syrup for bronchitis which developed after the surgery. TRAVEL OUTSIDE OF THE [place] IN LAST 30 DAYS: No - Related Data Allergies/Adverse Reactions: prednisone Allergy (Verified 09/08/18 14:54) Tachycardia Past Medical History - Social History Family history: None - Past Medical History Cardiac Medical History: Denies: Hx Coronary Artery Disease, Hx Heart Attack, Hx Hypertension - blood pressure rises during stress Pulmonary Medical History: Reports: Hx Pneumonia - CHILD Denies: Hx Asthma, Hx Bronchitis, Hx COPD Neurological Medical History: Denies: Hx Cerebrovascular Accident, Hx Seizures Endocrine Medical History: Reports: Hx Diabetes Mellitus Type 2, Hx Hyperthyroidism Renal/ Medical History: Reports: Hx Ovarian Cysts. Denies: Hx Peritoneal Dialysis Musculoskeltal Medical History: Denies Hx Arthritis Psychiatric Medical History: Reports: Hx Anxiety, Hx Depression Past Surgical History: Reports: Hx Gynecologic Surgery - Cyst from ovary removed twice. Denies: Hx Hysterectomy - Immunizations Immunizations up to date: Yes Hx Diphtheria, Pertussis, Tetanus Vaccination: Yes History of Influenza Vaccine for 07/2017 - 12/2017 Season: Yes Influenza Administration Date for 07/2017 - 12/2017 Season: 07/26/17 Physical Exam - Vital signs Vitals: Temp Pulse Resp BP Pulse Ox 97.9 F 80 18 126/64 H 98 09/08/18 14:57 09/08/18 14:57 09/08/18 14:57 09/08/18 14:57 09/08/18 14:57 Course - Vital Signs Vital signs: Temp Pulse Resp BP Pulse Ox 97.9 F 80 18 126/64 H 98 09/08/18 14:57 09/08/18 14:57 09/08/18 14:57 09/08/18 14:57 09/08/18 14:57 Doctor's Discharge - Discharge Referrals: TAQUERIA GATES MD [Primary Care Provider] - Follow up as needed
--- NOTE | 2018-09-08 16:34 | RADIOLOGY REPORT (SQ) ---
EXAM DESCRIPTION: ACUTE ABDOMEN SERIES COMPLETED DATE/TIME: 09/08/2018 4:20 pm REASON FOR STUDY: Abdominal pain COMPARISON: None. NUMBER OF VIEWS: Three views. TECHNIQUE: Frontal chest, supine abdomen and upright/decubitus abdomen radiographic images acquired. LIMITATIONS: None. FINDINGS: CHEST: Lungs clear of infiltrates. FREE AIR: None. No abnormal gas collections. BOWEL GAS PATTERN: Abundant fecal material throughout nondilated colon. CALCIFICATIONS: No suspicious calcifications. HARDWARE: None in the abdomen. SOFT TISSUES: No gross mass or suggestion of organomegaly. BONES: No acute fracture. No worrisome bone lesions. OTHER: No other significant finding. IMPRESSION: NO RADIOGRAPHIC EVIDENCE FOR ACUTE ABDOMINAL DISEASE. TECHNICAL DOCUMENTATION: JOB ID: [id number] [employer]- All Rights Reserved Reading location - IP/workstation name: [email or web address]
[2018-09-08 16:39] LABS: ABSOLUTE BASOPHILS # (AUTO) 0.1 10^3/uL (0.0-0.2); ABSOLUTE EOSINOPHILS # (AUTO) 0.2 10^3/uL (0.0-0.6); ABSOLUTE LYMPHOCYTES (AUTO) 1.7 10^3/uL (0.5-4.7); ABSOLUTE MONOCYTES (AUTO) 0.6 10^3/uL (0.1-1.4); ABSOLUTE NEUT (AUTO) 5.6 10^3/uL (1.7-8.2); BASOPHILS % (AUTO) 0.6 % (0-2); EOSINOPHILS % (AUTO) 2.9 % (0-6); HEMATOCRIT 38.9 % (36.0-47.0); HEMOGLOBIN 13.3 g/dL (12.0-15.5); MEAN CORPUSCULAR HEMOGLOBIN 26.7 pg (27.0-33.4); MEAN CORPUSCULAR HGB CONC 34.2 g/dL (32.0-36.0); MEAN CORPUSCULAR VOLUME 78 fl (80-97); MONOCYTES % (AUTO) 7.2 % (3-13); PLATELET COUNT 222 10^3/uL (150-450); RED BLOOD COUNT 4.99 10^6/uL (3.72-5.28); RED CELL DISTRIBUTION WIDTH 13.2 % (11.5-14.0); SEGMENTED NEUTROPHILS % (AUTO) 68.3 % (42-78); TOTAL CELLS COUNTED % (AUTO) 100 %; WHITE BLOOD COUNT 8.2 10^3/uL (4.0-10.5)
[2018-09-08 17:06] LABS: ALANINE AMINOTRANSFERASE 81 U/L (9-52); ALBUMIN 4.5 g/dL (3.5-5.0); ALKALINE PHOSPHATASE 123 U/L (38-126); ANION GAP 15 (5-19); ASPARTATE AMINO TRANSFERASE 93 U/L (14-36); BILIRUBIN,DIRECT 0.4 mg/dL (0.0-0.4); BILIRUBIN,TOTAL 0.5 mg/dL (0.2-1.3); BLOOD UREA NITROGEN 11 mg/dL (7-20); CALCIUM 9.4 mg/dL (8.4-10.2); CARBON DIOXIDE 22 mmol/L (22-30); CHLORIDE 103 mmol/L (98-107); GLUCOSE 153 mg/dL (75-110); POTASSIUM 4.3 mmol/L (3.6-5.0); SODIUM 139.7 mmol/L (137-145); TOTAL PROTEIN 7.8 g/dL (6.3-8.2)
--- NOTE | 2018-09-08 18:56 | ER Document Report ---
ED General - General TRAVEL OUTSIDE OF THE [place] IN LAST 30 DAYS: No <MAGGIE SYLVESTER - Last Filed: 09/08/18 19:39> <AQUILINO VU - Last Filed: 09/08/18 23:32> - General Chief Complaint: Abdominal Pain Stated Complaint: ABDOMINAL PAIN Time Seen by Provider: 09/08/18 15:37 Notes: Patient is a 43-year-old female presenting to the emergency department complaining of epigastric pain, swollen abdomen, shortness of breath. Patient states on August 27 she had a lap cholecystectomy. States on Thursday she was to her primary care provider complaining of shortness of breath. Patient states at that time she did have cough and congestion and attributed to that. Was placed on amoxicillin and prescription cough medicine at that time. Patient states primary care provider wanted her to get blood drawn to make sure she did not have a pulmonary embolism as well. States Thursday afternoon she got her blood drawn. States on Thursday she was called with the results and was told to go to [facility] outpatient radiology to get a CTA to rule out pulmonary embolism. Patient states she did get a CTA yesterday and those results were negative. Patient states today she was doing some home keeping such as mopping and folding washcloths and suddenly felt sharp pain in the epigastrium to substernal region sat down and then started noticing swelling of the abdomen and pain. Patient states after surgery she was placed on lifting restrictions but does not feel like she lifted anything too heavy today. Patient is denying dysuria or vaginal discharge. Patient also denies any nausea , vomiting, diarrhea. Past medical history: Diabetes Medications: Metformin, amoxicillin Allergies: Prednisone Surgical history: Ovarian cyst removal, cholecystectomy Last menstrual period August 20, 2018. (MAGGIE SYLVESTER) - Related Data Allergies/Adverse Reactions: prednisone Allergy (Verified 09/08/18 14:54) Tachycardia Past Medical History - General Information source: Patient - Social History Smoking Status: Never Smoker Chew tobacco use (# tins/day): No Frequency of alcohol use: None Drug Abuse: None Lives with: Family Family History: Arthritis, Hypertension, Malignancy, Thyroid Disfunction Patient has suicidal ideation: No Patient has homicidal ideation: No - Past Medical History Cardiac Medical History: Denies: Hx Coronary Artery Disease, Hx Heart Attack, Hx Hypertension - blood pressure rises during stress Pulmonary Medical History: Reports: Hx Pneumonia - CHILD Denies: Hx Asthma, Hx Bronchitis, Hx COPD Neurological Medical History: Denies: Hx Cerebrovascular Accident, Hx Seizures Endocrine Medical History: Reports: Hx Diabetes Mellitus Type 2, Hx Hyperthyroidism Renal/ Medical History: Reports: Hx Ovarian Cysts. Denies: Hx Peritoneal Dialysis Musculoskeletal Medical History: Denies Hx Arthritis Psychiatric Medical History: Reports: Hx Anxiety, Hx Depression Past Surgical History: Reports: Hx Cholecystectomy, Hx Gynecologic Surgery - Cyst from ovary removed twice. Denies: Hx Hysterectomy - Immunizations Immunizations up to date: Yes Hx Diphtheria, Pertussis, Tetanus Vaccination: Yes Hx Pneumococcal Vaccination: 10/26/13 <NGAMIKEYANNICKMAURY - Last Filed: 09/08/18 19:39> Review of Systems - Review of Systems Constitutional: See HPI EENT: See HPI Cardiovascular: See HPI Respiratory: See HPI Gastrointestinal: See HPI Genitourinary: See HPI Female Genitourinary: See HPI Musculoskeletal: No symptoms reported Skin: No symptoms reported Hematologic/Lymphatic: No symptoms reported Neurological/Psychological: No symptoms reported <SABRINA SYLVESTERMAURY - Last Filed: 09/08/18 19:39> Physical Exam <NGAMIKEYANNICKMAURY - Last Filed: 09/08/18 19:39> <AQUILINO VU - Last Filed: 09/08/18 23:32> - Vital signs Vitals: Temp Pulse Resp BP Pulse Ox 97.9 F 80 18 126/64 H 98 09/08/18 14:57 09/08/18 14:57 09/08/18 14:57 09/08/18 14:57 09/08/18 14:57 - Notes Notes: GENERAL: Alert, interacts well. No acute distress. HEAD: Normocephalic, atraumatic. EYES: Pupils equal, round, and reactive to light. Extraocular movements intact. ENT: Oral mucosa moist, tongue midline. NECK: Full range of motion. Supple. Trachea midline. LUNGS: Clear to auscultation bilaterally, no wheezes, rales, or rhonchi. No respiratory distress. HEART: Regular rate and rhythm. No murmur ABDOMEN: Soft, Non-distended. Bowel sounds present in all 4 quadrants. 3 well- healing laparoscopic scars. Pain upon palpation right upper quadrant and epigastric region. EXTREMITIES: Moves all 4 extremities spontaneously. No edema, normal radial and dorsalis pedis pulses bilaterally. No cyanosis. BACK: no cervical, thoracic, lumbar midline tenderness. No saddle anesthesia, normal distal neurovascular exam. NEUROLOGICAL: Alert and oriented x3. Normal speech. cranial nerves II through XII grossly intact. PSYCH: Normal affect, normal mood. SKIN: Warm, dry, normal turgor. No rashes or lesions noted. (MAGGIE SYLVESTER) Course - Laboratory Result Diagrams: 09/08/18 16:25 09/08/18 16:25 <MAGGIE SYLVESTER - Last Filed: 09/08/18 19:39> - Laboratory Result Diagrams: 09/08/18 16:25 09/08/18 16:25 <AQUILINO VU - Last Filed: 09/08/18 23:32> - Re-evaluation Re-evalutation: 09/08/18 19:39 Patient has still not produced any urine in the emergency room. Ultrasound results pending. Patient reports given to Aquilino Vu PA-C at bedside to continue patient care. (MAGGIE SYLVESTER) 09/08/18 20:25 There was a delay in ultrasound results because of a problem with the PACS system, this was finally obtained. On 08/30 patient had cholecystectomy secondary to biliary dyskinesia, she had a CTA performed yesterday, she has had a normal acute abdominal series and ultrasound at this time. I called and spoke with Dr. Khan, consulting actuary for patient's surgeon Dr. Brush. He states he will come evaluate the patient. Dr. Khan evaluated the patient. He states he feels she is cleared from an abdominal standpoint, he recommends an EKG and troponin and if these are normal that she can follow-up with Dr. Brush in the office within the next 2 days. EKG unremarkable, troponin negative. Patient continues to be well-appearing on reevaluation, answered questions, discussed follow-up, discussed return precautions, patient states understanding and agreement. (AQUILINO VU) - Vital Signs Vital signs: Temp Pulse Resp BP Pulse Ox 97.9 F 80 18 126/64 H 98 09/08/18 14:57 09/08/18 14:57 09/08/18 14:57 09/08/18 14:57 09/08/18 14:57 - Laboratory Laboratory results interpreted by me: 09/08/18 09/08/18 09/08/18 16:25 16:25 19:33 MCV 78 L MCH 26.7 L Creatinine 0.42 L Glucose 153 H AST 93 H ALT 81 H Ur Leukocyte Esterase TRACE H Discharge <DARRICKTODDMIKEYANNICKMAURY - Last Filed: 09/08/18 19:39> <SHASHANK VUAN - Last Filed: 09/08/18 23:32> - Discharge Clinical Impression: Postoperative pain Condition: Stable Disposition: HOME, SELF-CARE Instructions: Oral Narcotic Medication ([facility]) Additional Instructions: Your evaluation and studies from yesterday and today did not show any concerning abnormality. You were seen today by Dr. Khan, general surgeon. Recommendation is to call tomorrow to follow-up within the next 2 days or so with Dr. Brush in the office for additional evaluation and management. Return if you worsen including fever of 100.4 or greater, vomiting, increased swelling or pain, passing out, or any other concerning or worsening symptoms. Referrals: [facility] [Provider Group] - Follow up tomorrow
[2018-09-08] MEDS ORDERED: ONDANSETRON 4 MG TAB.RAPDIS PO ONE (19:49)
[2018-09-08 19:52] LABS: APPEARANCE,URINE SLIGHTLY-CLOUDY; BILIRUBIN,URINE NEGATIVE (NEGATIVE); COLOR,URINE YELLOW; GLUCOSE, URINE NEGATIVE (NEGATIVE); KETONES,URINE NEGATIVE (NEGATIVE); LEUKOCYTE ESTERASE,URINE TRACE (NEGATIVE); NITRITE,URINE NEGATIVE (NEGATIVE); PROTEIN,URINE NEGATIVE (NEGATIVE); URINE SPECIFIC GRAVITY 1.009; UROBILINOGEN,URINE NEGATIVE mg/dL (<2.0)
--- NOTE | 2018-09-08 20:20 | RADIOLOGY REPORT (SQ) ---
EXAM DESCRIPTION: U/S ABDOMEN LIMITED W/O DOP COMPLETED DATE/TIME: 09/08/2018 7:50 pm REASON FOR STUDY: RUQ pain COMPARISON: None. TECHNIQUE: Dynamic and static grayscale images acquired of the abdomen and recorded on PACS. Additio nal selected color Doppler and spectral images recorded. LIMITATIONS: None. FINDINGS: PANCREAS: No masses. Visualized pancreatic duct normal caliber. LIVER: Slightly increased echogenicity. No masses. LIVER VASCULATURE: Normal directional flow of the main portal vein and hepatic veins. GALLBLADDER: Cholecystectomy 2 weeks earlier. ULTRASOUND-DETECTED BARRETT'S SIGN: Not applicable. INTRAHEPATIC DUCTS AND COMMON DUCT: Common bile duct measures 4 mm. No stone is seen in the duct. INFERIOR VENA CAVA: Not imaged. AORTA: Not imaged. RIGHT KIDNEY: Normal size, 12.1 cm. Normal echogenicity. No solid or suspicious masses. No hydroneph rosis. No calcifications. PERITONEAL AND RIGHT PLEURAL SPACE: No ascites or effusions. OTHER: No other significant findings. IMPRESSION: There appears to be some degree of fatty infiltration of the liver. Prior cholecystecto my. No ductal dilatation. No ductal stone is seen. TECHNICAL DOCUMENTATION: JOB ID: [id number] [employer]- All Rights Reserved Reading location - IP/workstation name: [email or web address]
[2018-09-08] MEDS ORDERED: OXYCODONE-ACETAMINOPHEN 5-325 MG TABLET PO ONE (20:55)
--- NOTE | 2018-09-08 21:05 | PDOC CONSULTATION ---
History of Present Illness Admission Date/PCP: TAQUERIA GATES MD Patient complains of: Subxiphoid abdominal pain History of Present Illness: ARTEM SCHMITT is a 43 year old female status post laparoscopic cholecystectomy for biliary dyskinesia, although gallstones were found by the pathologist, about a week ago who initially did well up until yesterday when she began to have subxiphoid abdominal pain and some shortness of breath for which she underwent a CTA which was negative for pulmonary embolism. She developed acute onset of severe crushing subxiphoid abdominal pain along with shortness of breath today and was subsequently seen in the ER. That severe pain has now resolved but she still has pain at her right upper rib region that is mild to moderate. No fever. She had an workup in the ER that included an ultrasound which was normal other than the missing gallbladder. She had laboratory evaluation which was noteworthy for mild elevation of her transaminases which she has had in the past. Past Medical History Cardiac Medical History: Denies: Coronary Artery Disease, Myocardial Infarction, Hypertension - blood pressure rises during stress Pulmonary Medical History: Reports: Pneumonia - CHILD Denies: Asthma, Bronchitis, Chronic Obstructive Pulmonary Disease (COPD) Neurological Medical History: Denies: Seizures Endocrine Medical History: Reports: Diabetes Mellitus Type 2, Hyperthyroidism Musculoskeltal Medical History: Denies: Arthritis Psychiatric Medical History: Reports: Depression Hematology: Reports: Anemia Past Surgical History Past Surgical History: Reports: Cholecystectomy, Other - 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 Denies: Hysterectomy Social History Lives with: Family Smoking Status: Never Smoker Drugs: None Family History Family History: Arthritis, Hypertension, Malignancy, Thyroid Disfunction Parental Family History Reviewed: No Children Family History Reviewed: No Sibling(s) Family History Reviewed.: No Medication/Allergy Home Medications: Metformin HCl 1,000 mg PO QAM 01/18/18 Ibuprofen 800 mg PO ASDIR PRN 08/24/18 Metformin HCl [Metformin HCl ER] 500 mg PO QPM 08/24/18 Allergies/Adverse Reactions: prednisone Allergy (Verified 09/08/18 14:54) Tachycardia Physical Exam Vital Signs: Temp Pulse Resp BP Pulse Ox 97.9 F 80 18 126/64 H 98 09/08/18 14:57 09/08/18 14:57 09/08/18 14:57 09/08/18 14:57 09/08/18 14:57 Intake & Output 09/07/18 09/08/18 09/09/18 06:59 06:59 06:59 Weight 87.09 kg General appearance: PRESENT: no acute distress, cooperative Eye exam: PRESENT: conjunctiva pink Respiratory exam: PRESENT: clear to auscultation gera Cardiovascular exam: PRESENT: RRR GI/Abdominal exam: PRESENT: other - Abdomen is soft nondistended and with no significant tenderness to palpation with all wounds being clean dry and intact with no erythema. She does have some mild tenderness along her right lower rib but no abdominal tenderness per se. Results Laboratory Results: 09/08/18 16:25 09/08/18 16:25 09/08/18 09/08/18 09/08/18 16:25 16:25 16:25 WBC 8.2 RBC 4.99 Hgb 13.3 Hct 38.9 MCV 78 L MCH 26.7 L MCHC 34.2 RDW 13.2 Plt Count 222 Seg Neutrophils % 68.3 Lymphocytes % 21.0 Monocytes % 7.2 Eosinophils % 2.9 Basophils % 0.6 Absolute Neutrophils 5.6 Absolute Lymphocytes 1.7 Absolute Monocytes 0.6 Absolute Eosinophils 0.2 Absolute Basophils 0.1 Sodium 139.7 Potassium 4.3 Chloride 103 Carbon Dioxide 22 Anion Gap 15 BUN 11 Creatinine 0.42 L Est GFR ( Amer) > 60 Est GFR (Non-Af Amer) > 60 Glucose 153 H Calcium 9.4 Total Bilirubin 0.5 AST 93 H ALT 81 H Alkaline Phosphatase 123 Total Protein 7.8 Albumin 4.5 Lipase 97.0 Urine Color Urine Appearance Urine pH Ur Specific [place] Urine Protein Urine Glucose (UA) Urine Ketones Urine Blood Urine Nitrite Ur Leukocyte Esterase Urine WBC (Auto) Urine RBC (Auto) 09/08/18 19:33 WBC RBC Hgb Hct MCV MCH MCHC RDW Plt Count Seg Neutrophils % Lymphocytes % Monocytes % Eosinophils % Basophils % Absolute Neutrophils Absolute Lymphocytes Absolute Monocytes Absolute Eosinophils Absolute Basophils Sodium Potassium Chloride Carbon Dioxide Anion Gap BUN Creatinine Est GFR ( Amer) Est GFR (Non-Af Amer) Glucose Calcium Total Bilirubin AST ALT Alkaline Phosphatase Total Protein Albumin Lipase Urine Color YELLOW Urine Appearance SLIGHTLY-CLOUDY Urine pH 5.0 Ur Specific [place] 1.009 Urine Protein NEGATIVE Urine Glucose (UA) NEGATIVE Urine Ketones NEGATIVE Urine Blood NEGATIVE Urine Nitrite NEGATIVE Ur Leukocyte Esterase TRACE H Urine WBC (Auto) 2 Urine RBC (Auto) 1 Impressions: Acute Abdomen Series 09/08/18 15:39 IMPRESSION: NO RADIOGRAPHIC EVIDENCE FOR ACUTE ABDOMINAL DISEASE. Abdomen Ultrasound 09/08/18 17:30 IMPRESSION: There appears to be some degree of fatty infiltration of the liver. Prior cholecystectomy. No ductal dilatation. No ductal stone is seen. Assessment & Plan - Diagnosis (1) Abdominal pain Is this a current diagnosis for this admission?: Yes Plan: Subxiphoid severe abdominal pain along with shortness of breath at presentation. Since she had a CTA yesterday I do not think we need to repeat this study. With no significant fluid seen by ultrasound I do not think she has a biliary leak. Her mild elevation in her transaminases appears to be a chronic condition although common bile duct stone cannot be completely ruled out. Recommend a EKG and troponin and if the studies are normal, discharge patient home with follow-up with Dr. Brush later this week. He can pursue further workup if she has persistence or worsening of her symptoms. However I suspect that her symptoms are musculoskeletal in etiology with her overexertion today.
[2018-09-08] MEDS ORDERED: HYDROCODONE/ACETAMINOPHEN 5-325 MG (6 TAB/ER DISP) PO PRN (22:23)
--- NOTE | 2018-09-09 09:02 | EKG REPORT ---
SEVERITY:- NORMAL ECG - SINUS RHYTHM : Confirmed by: Wei Arteaga 09-Sep-2018 09:01:18
== END 2018-09-08 22:54 | disposition home or self-care (01) ==
LOC: ER 14:52
DX: G89.18 Other acute postprocedural pain (principal); R10.13 Epigastric pain; R10.11 Right upper quadrant pain; R07.2 Precordial pain; R06.02 Shortness of breath; R05 Cough; E11.9 Type 2 diabetes mellitus without complications; Z79.84 Long term (current) use of oral hypoglycemic drugs; Z90.49 Acquired absence of other specified parts of digestive tract; Z88.8 Allergy status to other drugs, medicaments and biological substances
CPT/HCPCS: 93005; 99285; 96372; 36415; 83690; 85025; 81025; 80053; 81001; 84484; 74022; 76705; 93010; J1885; S0119

== ENCOUNTER 2018-11-02 11:24 | Emergency (ER) | payer MEDICAID ==
--- NOTE | 2018-11-02 12:00 | ER Document Report ---
ED Medical Screen (RME) - General Chief Complaint: Vaginal Bleeding Stated Complaint: VAGINAL BLEEDING Time Seen by Provider: 11/02/18 11:51 Notes: RAPID MEDICAL EVALUATION DISCLOSURE I have seen this patient as part of a Rapid Medical Evaluation and, if applicable, placed any initially appropriate orders. The patient will be seen and fully evaluated, including a full history and physical exam, by a provider (in Main ED or Fast Track) when a room becomes available. 43-year-old female here with complaints of heavy vaginal bleeding for the past 18 days. She started a new control 18 days ago and this is when the bleeding started. She reports having to use size 5 baby diapers to contain the amount of blood that is expelled. She has started to feel fatigued and weak all over. She stopped taking the control 2 days ago. 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 She also complains of a remote surgical incision to her left mid back that she wonders if it may be infected. EXAM Mild suprapubic TTP There is a 1.5 cm healing surgical incision with some minimal to mild adjacent erythema TRAVEL OUTSIDE OF THE [place] IN LAST 30 DAYS: No - Related Data Allergies/Adverse Reactions: prednisone Allergy (Verified 11/02/18 11:26) Tachycardia Past Medical History - General Last Menstrual Period: 18 days ago - Social History Chew tobacco use (# tins/day): No Frequency of alcohol use: None Drug Abuse: None Family history: None - Past Medical History Cardiac Medical History: Denies: Hx Coronary Artery Disease, Hx Heart Attack, Hx Hypertension - blood pressure rises during stress Pulmonary Medical History: Reports: Hx Pneumonia - CHILD Denies: Hx Asthma, Hx Bronchitis, Hx COPD Neurological Medical History: Denies: Hx Cerebrovascular Accident, Hx Seizures Endocrine Medical History: Reports: Hx Diabetes Mellitus Type 2, Hx Hyperthyroidism Renal/ Medical History: Reports: Hx Ovarian Cysts. Denies: Hx Peritoneal Dialysis Musculoskeltal Medical History: Denies Hx Arthritis Psychiatric Medical History: Reports: Hx Anxiety, Hx Depression Past Surgical History: Reports: Hx Cholecystectomy, Hx Gynecologic Surgery - Cyst from ovary removed twice, Other - Multiple [employer] related surgeries for ovarian 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. Denies: Hx Hysterectomy - Immunizations Immunizations up to date: Yes Hx Diphtheria, Pertussis, Tetanus Vaccination: Yes History of Influenza Vaccine for 07/2017 - 12/2017 Season: Yes Influenza Administration Date for 07/2017 - 12/2017 Season: 07/26/17 Physical Exam - Vital signs Vitals: Temp Pulse Resp BP Pulse Ox 98.2 F 84 20 128/66 H 98 11/02/18 11:33 11/02/18 11:33 11/02/18 11:33 11/02/18 11:33 11/02/18 11:33 Course - Vital Signs Vital signs: Temp Pulse Resp BP Pulse Ox 98.2 F 84 20 128/66 H 98 11/02/18 11:33 11/02/18 11:33 11/02/18 11:33 11/02/18 11:33 11/02/18 11:33 Doctor's Discharge - Discharge Referrals: TAQUERIA GATES MD [Primary Care Provider] - Follow up as needed
--- NOTE | 2018-11-02 12:31 | ER Document Report ---
ED General - General Chief Complaint: Vaginal Bleeding Stated Complaint: VAGINAL BLEEDING Time Seen by Provider: 11/02/18 11:51 Notes: Patient is a 43-year-old female with history of endometriosis that presents to the emergency department for chief complaint of vaginal bleeding. Patient states that she was recently restarted on control pills, for endometriosis because she was having some cramping, and she was noted to have ovarian cysts, she did not want undergo surgery, so women's health placed her on oral contraceptive pills to help reduce her symptoms, she started taking it 18 days ago when she started her period as instructed, and she is been having bleeding since then. She usually has normal menstrual periods that last 7 days, and they usually were heavy, this is continued, she is had some mild lightheadedness, but denies having any nausea, vomiting. She describes her pain as an aching sensation in the lower pelvis on the left, she did have an ultrasound, that did demonstrate ovarian cyst. She currently describes the pain and rates it as a 6 out of 10, tolerable, but not improving much with the Motrin that she takes at home. Past Medical History: Endometriosis, diabetes mellitus Past Surgical History: Laparoscopy x3 with fulguration Social History: Denies tobacco use, admits to occasional alcohol use, denies illicit drug use. Family History: Reviewed and noncontributory for presenting illness Allergies: Reviewed, see documented allergy list. REVIEW OF SYSTEMS: Other than noted above, the 12 point review of systems was reviewed with the patient and were negative, all pertinent findings are included in the HPI. PHYSICAL EXAMINATION: Vital signs reviewed, nursing noted reviewed. GENERAL: Well-appearing, well-nourished and in no acute distress. HEAD: Atraumatic, normocephalic. EYES: Eyes appear normal, extraocular movements intact, sclera anicteric, conjunctiva are normal. ENT: nares patent, oropharynx clear without exudates. Moist mucous membranes. NECK: Normal range of motion, supple without lymphadenopathy LUNGS: Breath sounds clear to auscultation bilaterally and equal. No wheezes rales or rhonchi. HEART: Regular rate and rhythm without murmurs ABDOMEN: Soft, mild lower abdominal tenderness to palpation, normoactive bowel sounds. No rebound, guarding, or rigidity. No masses appreciated. EXTREMITIES: Nontender, good range of motion, no pitting or edema. NEUROLOGICAL: No focal neurological deficits. Moves all extremities spontaneously Motor and sensory grossly intact on exam. PSYCH: Normal mood, normal affect. SKIN: Warm, Dry, normal turgor, no rashes or lesions noted on exposed skin TRAVEL OUTSIDE OF THE [place] IN LAST 30 DAYS: No - Related Data Allergies/Adverse Reactions: prednisone Allergy (Verified 11/02/18 11:26) Tachycardia Past Medical History - General Last Menstrual Period: 18 days ago - Social History Smoking Status: Never Smoker Chew tobacco use (# tins/day): No Frequency of alcohol use: None Drug Abuse: None Family History: Arthritis, Hypertension, Malignancy, Thyroid Disfunction Patient has suicidal ideation: No Patient has homicidal ideation: No - Past Medical History Cardiac Medical History: Denies: Hx Coronary Artery Disease, Hx Heart Attack, Hx Hypertension - blood pressure rises during stress Pulmonary Medical History: Reports: Hx Pneumonia - CHILD Denies: Hx Asthma, Hx Bronchitis, Hx COPD Neurological Medical History: Denies: Hx Cerebrovascular Accident, Hx Seizures Endocrine Medical History: Reports: Hx Diabetes Mellitus Type 2, Hx Hyperthyroidism Renal/ Medical History: Reports: Hx Ovarian Cysts. 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 Denies: Hx Hysterectomy - Immunizations Immunizations up to date: Yes Hx Diphtheria, Pertussis, Tetanus Vaccination: Yes Hx Pneumococcal Vaccination: 10/26/13 Physical Exam - Vital signs Vitals: Temp Pulse Resp BP Pulse Ox 98.2 F 84 20 128/66 H 98 11/02/18 11:33 11/02/18 11:33 11/02/18 11:33 11/02/18 11:33 11/02/18 11:33 Course - Re-evaluation Re-evalutation: Patient seen and examined vital signs reviewed. Laboratory data and imaging were ordered as appropriate for the patient's presenting symptoms and complaint, with consideration of any critical or life threatening conditions that may be associated with their obtained history and exam as noted above. Results were reviewed when available and demonstrated very mild anemia, normal platelet count, microcytic anemia however, likely iron deficiency given the patient's prolonged vaginal bleeding, but not low for transfusion, blood work otherwise unremarkable, transvaginal ultrasound ordered by triage provider, was unremarkable as well. The patient was re-evaluated and was stable Evaluation was most consistent with vaginal bleeding, abnormal, likely secondary to OCPs, advised follow-up with [facility], will prescribe iron tablets for her iron deficiency anemia, and to take the dispense [place] only as needed for severe pain. Results were discussed with the patient at this point, after careful consideration I feel that that patient can be discharged from the emergency department, the patient was educated treatments and reasons to return to the emergency department based on their presumed diagnosis as noted above, they were advised to followup with a primary care physician in 2-3 days. Patient was agreeable to plan of care. *Note is created using voice recognition software and may contain spelling, syntax or grammatical errors. Laboratory 11/02/18 11/02/18 11/02/18 12:00 12:00 12:00 WBC 6.6 RBC 4.34 Hgb 11.2 L Hct 33.0 L MCV 76 L MCH 25.9 L MCHC 34.0 RDW 13.4 Plt Count 267 Seg Neutrophils % 66.7 Lymphocytes % 24.9 Monocytes % 5.4 Eosinophils % 2.6 Basophils % 0.4 Absolute Neutrophils 4.4 Absolute Lymphocytes 1.7 Absolute Monocytes 0.4 Absolute Eosinophils 0.2 Absolute Basophils 0.0 Sodium 139.0 Potassium 4.1 Chloride 104 Carbon Dioxide 26 Anion Gap 9 BUN 14 Creatinine 0.41 L Est GFR ( Amer) > 60 Est GFR (Non-Af Amer) > 60 Glucose 220 H Calcium 9.1 Urine Color LEDY Urine Appearance CLOUDY Urine pH 5.0 Ur Specific [place] 1.023 Urine Protein 100 H Urine Glucose (UA) >=500 H Urine Ketones NEGATIVE Urine Blood LARGE H Urine Nitrite NEGATIVE Urine Bilirubin NEGATIVE Urine Urobilinogen NEGATIVE Ur Leukocyte Esterase NEGATIVE Urine WBC (Auto) 7 Urine RBC (Auto) >182 Squamous Epi Cells Auto 1 Urine Mucus (Auto) RARE Urine Ascorbic Acid NEGATIVE Urine HCG, Qual NEGATIVE 11/02/18 14:13 - Vital Signs Vital signs: Temp Pulse Resp BP Pulse Ox 98.2 F 84 20 128/66 H 98 11/02/18 11:33 11/02/18 11:33 11/02/18 11:33 11/02/18 11:33 11/02/18 11:33 - Laboratory Result Diagrams: 11/02/18 12:00 11/02/18 12:00 Laboratory results interpreted by me: 11/02/18 11/02/18 11/02/18 12:00 12:00 12:00 Hgb 11.2 L Hct 33.0 L MCV 76 L MCH 25.9 L Creatinine 0.41 L Glucose 220 H Urine Protein 100 H Urine Glucose (UA) >=500 H Urine Blood LARGE H Discharge - Discharge Clinical Impression: Vaginal bleeding, Microcytic anemia Condition: Stable Disposition: HOME, SELF-CARE Instructions: Vaginal Bleeding ([facility]) Additional Instructions: Please follow-up with [facility], please take the iron pills as prescribed, if any further concern, or feel your symptoms are worsening, do not hesitate to return to the emergency department. Prescriptions: Ferrous Sulfate [Feosol] 325 mg PO BID #60 tablet Referrals: TAQUERIA GATES MD [Primary Care Provider] - Follow up in 3-5 days [facility] [Provider [facility]] - Follow up in 3-5 days
[2018-11-02 12:34] LABS: ABSOLUTE EOSINOPHILS # (AUTO) 0.2 10^3/uL (0.0-0.6); ABSOLUTE LYMPHOCYTES (AUTO) 1.7 10^3/uL (0.5-4.7); ABSOLUTE MONOCYTES (AUTO) 0.4 10^3/uL (0.1-1.4); ABSOLUTE NEUT (AUTO) 4.4 10^3/uL (1.7-8.2); BASOPHILS % (AUTO) 0.4 % (0-2); EOSINOPHILS % (AUTO) 2.6 % (0-6); HEMOGLOBIN 11.2 g/dL (12.0-15.5); LYMPHOCYTES % (AUTO) 24.9 % (13-45); MEAN CORPUSCULAR HEMOGLOBIN 25.9 pg (27.0-33.4); MEAN CORPUSCULAR VOLUME 76 fl (80-97); MONOCYTES % (AUTO) 5.4 % (3-13); PLATELET COUNT 267 10^3/uL (150-450); RED BLOOD COUNT 4.34 10^6/uL (3.72-5.28); RED CELL DISTRIBUTION WIDTH 13.4 % (11.5-14.0); SEGMENTED NEUTROPHILS % (AUTO) 66.7 % (42-78); TOTAL CELLS COUNTED % (AUTO) 100 %; WHITE BLOOD COUNT 6.6 10^3/uL (4.0-10.5)
[2018-11-02 12:42] LABS: APPEARANCE,URINE CLOUDY; BILIRUBIN,URINE NEGATIVE (NEGATIVE); COLOR,URINE AMBER; GLUCOSE, URINE >=500 mg/dL (NEGATIVE); KETONES,URINE NEGATIVE (NEGATIVE); LEUKOCYTE ESTERASE,URINE NEGATIVE (NEGATIVE); NITRITE,URINE NEGATIVE (NEGATIVE); PROTEIN,URINE 100 mg/dL (NEGATIVE); URINE SPECIFIC GRAVITY 1.023; UROBILINOGEN,URINE NEGATIVE mg/dL (<2.0)
[2018-11-02 12:58] LABS: ANION GAP 9 (5-19); BLOOD UREA NITROGEN 14 mg/dL (7-20); CALCIUM 9.1 mg/dL (8.4-10.2); CARBON DIOXIDE 26 mmol/L (22-30); CHLORIDE 104 mmol/L (98-107); GLUCOSE 220 mg/dL (75-110); POTASSIUM 4.1 mmol/L (3.6-5.0)
[2018-11-02] MEDS ORDERED: HYDROCODONE/ACETAMINOPHEN 5-325 MG (6 TAB/ER DISP) PO PRN (13:19)
--- NOTE | 2018-11-02 14:03 | RADIOLOGY REPORT (SQ) ---
EXAM DESCRIPTION: U/S NON OB PEL TV W/DOPPLER COMPLETED DATE/TIME: 11/02/2018 1:47 pm REASON FOR STUDY: heavy vag bleed; eval etiology COMPARISON: Prior pelvic ultrasound exam 05/27/2016, 05/06/2017 TECHNIQUE: Dynamic and static grayscale images acquired of the pelvis via transvaginal approach and recorded on PACS. Additional selected color Doppler and spectral images recorded. LIMITATIONS: None. FINDINGS: UTERUS: Contour normal. No mass. Uterus is 8 x 6 x 5 cm in size ENDOMETRIAL STRIPE: No focal or generalized thickening. No masses. Endometrial stripe 8 mm in thickn ess. CERVIX: No nabothian cysts. Closed, 3 cm in length. RIGHT OVARY AND DOPPLER: Normal size, 4.5 x 3 x 1.7 cm. No worrisome masses. Normal arterial vascular flow without evidence for torsion. LEFT OVARY AND DOPPLER: Normal size,,3.8 x 2.9 x 2.9 cm in size. No worrisome masses. Normal arterial vascular flow without evidence for torsion. FREE FLUID: None noted. OTHER: No other significant finding. IMPRESSION: NORMAL TRANSVAGINAL PELVIC ULTRASOUND. TECHNICAL DOCUMENTATION: JOB ID: [id number] [employer]- All Rights Reserved Rev-03/12 Reading location - IP/workstation name: [email or web address]
[2018-11-02 14:28] VITALS: BP 123/79
== END 2018-11-02 14:27 | disposition home or self-care (01) ==
LOC: ER 11:24
DX: D50.9 Iron deficiency anemia, unspecified (principal); N93.9 Abnormal uterine and vaginal bleeding, unspecified; E11.9 Type 2 diabetes mellitus without complications; R42 Dizziness and giddiness; I10 Essential (primary) hypertension
CPT/HCPCS: 36415; 76830; 80048; 81001; 81025; 85025; 93976; 99284

== ENCOUNTER 2019-07-12 01:57 | Emergency (ER) | payer MEDICAID ==
[2019-07-12 05:25] LABS: ABSOLUTE BASOPHILS # (AUTO) 0.1 10^3/uL (0.0-0.2); ABSOLUTE EOSINOPHILS # (AUTO) 0.3 10^3/uL (0.0-0.6); ABSOLUTE LYMPHOCYTES (AUTO) 2.8 10^3/uL (0.5-4.7); ABSOLUTE MONOCYTES (AUTO) 0.6 10^3/uL (0.1-1.4); ABSOLUTE NEUT (AUTO) 7.1 10^3/uL (1.7-8.2); BASOPHILS % (AUTO) 0.7 % (0-2); EOSINOPHILS % (AUTO) 2.5 % (0-6); HEMATOCRIT 39.8 % (36.0-47.0); HEMOGLOBIN 13.4 g/dL (12.0-15.5); LYMPHOCYTES % (AUTO) 25.6 % (13-45); MEAN CORPUSCULAR HEMOGLOBIN 25.3 pg (27.0-33.4); MEAN CORPUSCULAR HGB CONC 33.8 g/dL (32.0-36.0); MEAN CORPUSCULAR VOLUME 75 fl (80-97); MONOCYTES % (AUTO) 5.9 % (3-13); PLATELET COUNT 256 10^3/uL (150-450); RED CELL DISTRIBUTION WIDTH 16.9 % (11.5-14.0); SEGMENTED NEUTROPHILS % (AUTO) 65.3 % (42-78); TOTAL CELLS COUNTED % (AUTO) 100 %; WHITE BLOOD COUNT 10.9 10^3/uL (4.0-10.5)
[2019-07-12 05:52] LABS: ALBUMIN 4.7 g/dL (3.5-5.0); ALKALINE PHOSPHATASE 83 U/L (38-126); ANION GAP 11 (5-19); ASPARTATE AMINO TRANSFERASE 22 U/L (14-36); BILIRUBIN,DIRECT 0.1 mg/dL (0.0-0.4); BILIRUBIN,TOTAL 0.5 mg/dL (0.2-1.3); BLOOD UREA NITROGEN 10 mg/dL (7-20); CALCIUM 9.6 mg/dL (8.4-10.2); CARBON DIOXIDE 25 mmol/L (22-30); CHLORIDE 104 mmol/L (98-107); GLUCOSE 92 mg/dL (75-110); POTASSIUM 4.4 mmol/L (3.6-5.0); TOTAL PROTEIN 7.8 g/dL (6.3-8.2)
[2019-07-12 06:11] LABS: URINE SPECIFIC GRAVITY 1.002
[2019-07-12 06:12] LABS: APPEARANCE,URINE CLEAR; BILIRUBIN,URINE NEGATIVE (NEGATIVE); COLOR,URINE YELLOW; GLUCOSE, URINE NEGATIVE (NEGATIVE); KETONES,URINE NEGATIVE (NEGATIVE); LEUKOCYTE ESTERASE,URINE NEGATIVE (NEGATIVE); NITRITE,URINE NEGATIVE (NEGATIVE); PROTEIN,URINE NEGATIVE (NEGATIVE); UROBILINOGEN,URINE NEGATIVE mg/dL (<2.0)
[2019-07-12] MEDS ORDERED: MAG HYDROX/AL HYDROX/SIMETH SUSP 30 ML UDCUP PO ONE (06:37)
[2019-07-12] MEDS ORDERED: LIDOCAINE 2% VISCOUS SOLN 20 ML UDCUP PO ONE (06:37)
[2019-07-12] MEDS ORDERED: METOCLOPRAMIDE HCL ORAL SOLN 10 MG/10 ML UDCUP PO ONE (06:37)
--- NOTE | 2019-07-12 06:40 | ER Document Report ---
ED GI/ - General Chief Complaint: Abdominal Pain Stated Complaint: ABDOMINAL PAIN Time Seen by Provider: 07/12/19 06:08 Primary Care Provider: TAQUERIA GATES MD [Primary Care Provider] - Follow up as needed Notes: 44-year-old female presents with some right upper quadrant discomfort that is been on and off for a month. Patient does have a history of cholecystectomy. States she feels bloated after eating. She gets nauseous. But denies vomiting. Was a sharp pain in her right upper quadrant of her abdomen. She denies fever or chills. Does get nauseous but denies vomiting denies black bloody or tarry stools. Describes the pain as sharp and mild to moderate sometimes it can become severe for which she did last night. She has not been seen by anybody for this. She denies any changes in skin color denies hematuria or dysuria. Denies fever chills cough or sore throat. Denies glands like night sweats or hemoptysis. TRAVEL OUTSIDE OF THE [place] IN LAST 30 DAYS: No - Related Data Allergies/Adverse Reactions: prednisone Allergy (Verified 07/12/19 02:04) Tachycardia Past Medical History - Social History Smoking Status: Never Smoker Chew tobacco use (# tins/day): No Family History: Arthritis, Hypertension, Malignancy, Thyroid Disfunction Patient has suicidal ideation: No Patient has homicidal ideation: No - Past Medical History Cardiac Medical History: Denies: Hx Coronary Artery Disease, Hx Heart Attack, Hx Hypertension - blood pressure rises during stress Pulmonary Medical History: Reports: Hx Pneumonia - CHILD Denies: Hx Asthma, Hx Bronchitis, Hx COPD Neurological Medical History: Denies: Hx Cerebrovascular Accident, Hx Seizures Endocrine Medical History: Reports: Hx Diabetes Mellitus Type 2, Hx Hyperthyroidism Renal/ Medical History: Reports: Hx Ovarian Cysts. 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 Denies: Hx Hysterectomy - Immunizations Immunizations up to date: Yes Hx Diphtheria, Pertussis, Tetanus Vaccination: Yes Hx Pneumococcal Vaccination: 10/26/13 Review of Systems - Review of Systems Constitutional: denies: Chills, Fever Cardiovascular: denies: Chest pain, Palpitations, Edema Gastrointestinal: Abdomen distended, Abdominal pain, Nausea. denies: Diarrhea, Vomiting, Constipation Genitourinary: denies: Dysuria, Hematuria Musculoskeletal: denies: Back pain Neurological/Psychological: denies: Headaches -: Yes All other systems reviewed and negative Physical Exam - Vital signs Vitals: Temp Pulse Resp BP Pulse Ox 98.7 F 73 20 124/65 100 07/12/19 02:24 07/12/19 02:24 07/12/19 02:07/12/19 02:07/12/19 02:24 - Notes Notes: GENERAL_APPEARANCE: well_nourished, alert, cooperative VITALS: reviewed, see vital signs table. HEAD: no_swelling\tenderness on the head. EYES: PERRL, EOMI, conjunctiva_clear. NOSE: no_nasal_discharge. MOUTH: (-)decreased moisture. THROAT: no_tonsilar_inflammation, no_airway_obstruction. no_lymphadenopathy NECK: supple, no_neck_tenderness, (-)thyromegaly. BACK: no_back_tenderness. CHEST_WALL: no_chest_tenderness. LUNGS: no_wheezing, no_rales, no_rhonchi, (-)accessory muscle use, good air exchange bilateral. HEART: normal_rate, normal_rhythm, normal_S1, normal_S2, (-)S3, (-)S4, no_murmur, no_rub. ABDOMEN: normal_BS, soft, gastric and right upper quadrant_abd_tenderness, (- )guarding, (-)rebound, no_organomegaly, no_abd_masses. He sign negative EXTREMITIES: good pulses in all_extremities, no_swelling\tenderness in the extremities, no_edema. SKIN: warm, dry, good_color, no_rash. MENTAL_STATUS: speech_clear, oriented_X_3, normal_affect, responds_appropriately to questions. NEURO: Neg Motor or Sensory Deficits on exam, CN 2-12 intact, DTR 2+ symmetric x 4, No cerbellar signs Course - Re-evaluation Re-evalutation: 07/12/19 06:40 44-year-old female who has some epigastric right upper quadrant discomfort after eating. She had this for about a month. We will check some generalized labs. She denies any sniffing and alcohol intake. We will get a CT of abdomen and pelvis. She has a history of cholecystectomy. We will give her a GI cocktail. This may be gastritis or early ulcer formation. We will also check with a CT for biliary duct dilatation. This may be from stone impaction. We will look for LFT elevations and elevations in lipase. We will treat the patient symptomatic otherwise. 07/12/19 08:34 Labs and urine were normal. CT is normal. There is no signs of pancreatitis or LFT elevation to suggest a ductal stone. Patient was better after GI cocktail. This may be gastritis or early ulcer formation. We will place the patient on Pepcid nightly. We will have her follow-up with her primary care she may need GI referral. - Vital Signs Vital signs: Temp Pulse Resp BP Pulse Ox 98.2 F 71 14 128/91 H 98 07/12/19 08:08 07/12/19 08:08 07/12/19 08:08 07/12/19 08:08 07/12/19 08:08 - Laboratory Result Diagrams: 07/12/19 05:04 07/12/19 05:04 Laboratory results interpreted by me: 07/12/19 07/12/19 05:04 05:04 WBC 10.9 H RBC 5.30 H MCV 75 L MCH 25.3 L RDW 16.9 H Creatinine 0.46 L - Diagnostic Test Radiology reviewed: Reports reviewed Radiology results interpreted by me: 07/12/19 08:33 Abdomen/Pelvis CT 07/12/19 06:37 IMPRESSION: 1. Normal unenhanced CT scan of the abdomen and pelvis. There is no evidence of urinary tract calcification or urinary tract obstruction. 2. Remote cholecystectomy. Discharge - Discharge Clinical Impression: Abdominal pain Qualifiers: Abdominal location: epigastric Qualified Code(s): R10.13 - Epigastric pain Condition: Good Disposition: HOME, SELF-CARE Instructions: Abdominal Pain ([facility]) Additional Instructions: Please follow-up with your primary care doctor you may need to refer you to GI. Prescriptions: Famotidine [Pepcid 40 mg Tablet] 40 mg PO QHS #30 tablet Referrals: TAQUERIA GATES MD [Primary Care Provider] - Follow up as needed
--- NOTE | 2019-07-12 07:52 | RADIOLOGY REPORT (SQ) ---
EXAM: CT abdomen and pelvis without intravenous contrast CLINICAL DATA: 44-year-old female with right upper quadrant pain TECHNICAL DATA: Axial CT imaging of the abdomen and pelvis was performed. Sagittal and coronal reconstructed images were then performed. The CT study is performed according to ALARA (as low as reasonably achievable) or ALARA/IMAGE GENTLY, with automatic adjustment of mA and/or kV according to patient size. Performed on: 07/12/2019 at 7:06 AM Comparison: CT abdomen and pelvis performed on 01/20/2014. FINDINGS: Lung bases: The lung bases are clear. Liver:The liver is normal in size and configuration. No focal hepatic abnormalities are appreciated on this unenhanced scan. Liver attenuation is within normal limits. Spleen:The spleen is normal is size, configuration and attenuation. No focal splenic abnormalities are appreciated on this unenhanced scan. Gallbladder and bile duct: The gallbladder is surgically absent. There is no biliary ductal dilatation. Pancreas: The pancreas is grossly normal in size and configuration. Adrenal Glands:The adrenal glands are normal in size and configuration. Kidneys:The kidneys are normal in size and configuration. There is no evidence of hydronephrosis. There is no evidence of nephrolithiasis. No focal renal abnormalities are identified. Stomach:The stomach is grossly normal. There is no definite hiatal hernia. Bowel:The bowel gas pattern is non specific and non obstructive. Appendix: The appendix is normal. Free air:There is no evidence of free air. Free fluid: There is no evidence of free fluid. Vasculature: The aorta is normal in caliber and contour. The inferior vena cava is grossly unremarkable. Lymphadenopathy: No pathologic lymphadenopathy is identified. Bladder: The bladder is well distended and smooth in contour. Reproductive: The uterus is grossly within normal limits. Bones: No acute osseous abnormalities are identified. Soft tissues: No focal soft tissue abnormalities are identified. IMPRESSION: 1. Normal unenhanced CT scan of the abdomen and pelvis. There is no evidence of urinary tract calcification or urinary tract obstruction. 2. Remote cholecystectomy.
[2019-07-12 08:55] VITALS: BP 148/71
== END 2019-07-12 08:55 | disposition home or self-care (01) ==
LOC: ER 01:57
DX: R10.13 Epigastric pain (principal); R10.11 Right upper quadrant pain; R10.811 Right upper quadrant abdominal tenderness; R11.0 Nausea; R14.0 Abdominal distension (gaseous); E11.9 Type 2 diabetes mellitus without complications; Z90.49 Acquired absence of other specified parts of digestive tract; Z88.8 Allergy status to other drugs, medicaments and biological substances
CPT/HCPCS: 36415; 83690; 85025; 80053; 81001; 74176; J3490 ×3; 96374; 99284

== ENCOUNTER 2019-07-14 12:21 | Emergency (ER) | payer MEDICAID ==
[2019-07-14 12:31] VITALS: BP 138/77
[2019-07-14] MEDS ORDERED: KETOROLAC TROMETHAMINE 60 MG/2 ML SDV IM ONE (13:16)
--- NOTE | 2019-07-14 13:37 | ER Document Report ---
ED General - General Chief Complaint: Back Pain Stated Complaint: LOWER BACK PAIN Time Seen by Provider: 07/14/19 12:33 Primary Care Provider: TAQUERIA GATES MD [Primary Care Provider] - Follow up in 3-5 days TRAVEL OUTSIDE OF THE [place] IN LAST 30 DAYS: No - HPI Notes: 44-year-old female to the emergency department with complaints of low back pain that has been ongoing since 7 AM yesterday. She states that she was lifting her disabled son into his wheelchair when she felt immediate pain and spasm in her back. She states that since then every time she tries to walk, turn or move about she has pain in the back. She denies any bladder bowel incontinence, urinary retention, radiculopathy down the legs, weakness in the legs. She states that she has strained her back before and she is been moving her son. She states they do not have a lift in the home. She denies any other injuries. She is tried 800 mg Motrin without any benefit. - Related Data Allergies/Adverse Reactions: prednisone Allergy (Verified 07/14/19 12:24) Tachycardia Past Medical History - General Information source: Patient - Social History Smoking Status: Never Smoker Frequency of alcohol use: None Drug Abuse: None Family History: Arthritis, Hypertension, Malignancy, Thyroid Disfunction - Past Medical History Cardiac Medical History: Denies: Hx Coronary Artery Disease, Hx Heart Attack, Hx Hypertension - blood pressure rises during stress Pulmonary Medical History: Reports: Hx Pneumonia - CHILD Denies: Hx Asthma, Hx Bronchitis, Hx COPD Neurological Medical History: Denies: Hx Cerebrovascular Accident, Hx Seizures Endocrine Medical History: Reports: Hx Diabetes Mellitus Type 2, Hx Hyperthyroidism Renal/ Medical History: Reports: Hx Ovarian Cysts. 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 Denies: Hx Hysterectomy - Immunizations Immunizations up to date: Yes Hx Diphtheria, Pertussis, Tetanus Vaccination: Yes Hx Pneumococcal Vaccination: 10/26/13 Review of Systems - Review of Systems Constitutional: denies: Chills, Fever EENT: No symptoms reported Cardiovascular: denies: Chest pain, Palpitations, Heart racing, Orthopnea, Dyspnea, Syncope, Dizziness, Lightheaded Respiratory: denies: Cough, Short of breath Gastrointestinal: denies: Abdominal pain, Diarrhea, Nausea, Vomiting Musculoskeletal: See HPI, Back pain Skin: No symptoms reported -: Yes All other systems reviewed and negative Physical Exam - Vital signs Vitals: Temp Pulse Resp BP Pulse Ox 98.2 F 83 16 138/77 H 97 07/14/19 12:30 07/14/19 12:30 07/14/19 12:30 07/14/19 12:30 07/14/19 12:30 Interpretation: Normal - General General appearance: Appears well, Alert In distress: None - HEENT Head: Normocephalic, Atraumatic Eyes: Normal Pupils: PERRL - Respiratory Respiratory status: No respiratory distress Chest status: Nontender Breath sounds: Normal Chest palpation: Normal - Cardiovascular Rhythm: Regular Heart sounds: Normal auscultation Murmur: No - Back Back: Tender. No: Deformity/step-off, CVA tenderness, Vertebra tenderness Notes: There is noted bilateral para spinal lumbar tenderness to palpation with noted muscle spasm. Patient has negative bilateral straight leg raise. She is able to ambulate with pain. She has increased pain with twisting and bending of the back. 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 No: Pronator drift Sensory: Normal - Psychological Associated symptoms: Normal affect, Normal mood - Skin Skin Temperature: Warm Skin Moisture: Dry Skin Color: Normal Course - Re-evaluation Re-evalutation: 07/14/19 Impression: Lumbar back strain. Do not think patient needs imaging today. Will discharge home with pain control and muscle relaxants. Have encouraged gentle stretching as well as applying heat to the back 3 times a day for 20 minutes. Patient agrees with the plan will discharge home. Urged to return if she has worsening symptoms and she agrees with the plan. - Vital Signs Vital signs: Temp Pulse Resp BP Pulse Ox 98.2 F 83 16 138/77 H 97 07/14/19 12:30 07/14/19 12:30 07/14/19 12:30 07/14/19 12:30 07/14/19 12:30 Discharge - Discharge Clinical Impression: Lumbar paraspinal muscle spasm Lumbar back sprain Qualifiers: Encounter type: initial encounter Qualified Code(s): S33.5XXA - Sprain of ligaments of lumbar spine, initial encounter Condition: Stable Disposition: HOME, SELF-CARE Instructions: Muscle Relaxers ([facility]) Additional Instructions: GENTLE STRETCHING. RETURN IMMEDIATELY IF ANY BLADDER/BOWEL INCONTINENCE, URINARY RETENTION, FEVERS, INABILITY TO WALK, NUMBNESS?TINGLING AROUND THE RECTUM OR VAGINA. TAKE MEDICINES PRESCRIBED. Prescriptions: Cyclobenzaprine HCl [Flexeril 5 mg Tablet] 1 - 2 tab PO TID PRN #15 tablet PRN Reason: Acetaminophen with Codeine [Tylenol #3 Tablet] 1 each PO Q6H PRN #10 tablet PRN Reason: Referrals: TAQUERIA GATES MD [Primary Care Provider] - Follow up in 3-5 days
== END 2019-07-14 13:56 | disposition home or self-care (01) ==
LOC: ER 12:21
DX: S33.5XXA Sprain of ligaments of lumbar spine, initial encounter (principal); S39.012A Strain of muscle, fascia and tendon of lower back, initial encounter; M62.830 Muscle spasm of back; X50.9XXA Other and unspecified overexertion or strenuous movements or postures, initial encounter; Y93.F2 Activity, caregiving, lifting; E11.9 Type 2 diabetes mellitus without complications; Z88.8 Allergy status to other drugs, medicaments and biological substances
CPT/HCPCS: J1885

== ENCOUNTER 2019-07-16 04:29 | Emergency (ER) | payer MEDICAID ==
[2019-07-16 04:39] VITALS: BP 131/70
[2019-07-16] MEDS ORDERED: LIDOCAINE 5% (700 MG) TRANSDERMAL ADH..PATCH TP ONE (06:02)
[2019-07-16] MEDS ORDERED: KETOROLAC TROMETHAMINE 60 MG/2 ML SDV IM ONE (06:02)
--- NOTE | 2019-07-16 06:07 | ER Document Report ---
ED General Pain - General Chief Complaint: Back Pain Stated Complaint: RIB PAIN,DIFFICULTY BREATHING Time Seen by Provider: 07/16/19 05:47 Primary Care Provider: TAQUERIA GATES MD [Primary Care Provider] - Follow up as needed Notes: Patient is a 44-year-old female presents to the emergency department with right paraspinal back pain as well as "swelling ribs." Patient states she was seen at this facility on Thursday after picking up her son and developing pain in her right paraspinal back. Patient states she was told to return to the emergency department should her pain continue or get worse. Patient states now she feels as though it is radiating down her right buttocks. Patient's denying any urinary retention, denies any loss of bowel or bladder. Patient denies any numbness or tingling in any extremity. Patient denies any new injury. States she did take the Tylenol 3 she was prescribed as well as the Flexeril this evening. Patient states after taking the Tylenol 3 with the Flexeril she noted that the anterior Lower bilateral ribs were "swollen." Patient's denying any trauma or injury. Patient's denying any pain or trouble breathing. Patient's denying any URI symptoms. TRAVEL OUTSIDE OF THE [place] IN LAST 30 DAYS: No - Related Data Allergies/Adverse Reactions: prednisone Allergy (Verified 07/14/19 12:24) Tachycardia Past Medical History - General Information source: Patient - Social History Smoking Status: Never Smoker Family History: Arthritis, Hypertension, Malignancy, Thyroid Disfunction Patient has suicidal ideation: No Patient has homicidal ideation: No - Past Medical History Cardiac Medical History: Denies: Hx Coronary Artery Disease, Hx Heart Attack, Hx Hypertension - blood pressure rises during stress Pulmonary Medical History: Reports: Hx Pneumonia - CHILD Denies: Hx Asthma, Hx Bronchitis, Hx COPD Neurological Medical History: Denies: Hx Cerebrovascular Accident, Hx Seizures Endocrine Medical History: Reports: Hx Diabetes Mellitus Type 2, Hx Hyperthyroidism Renal/ Medical History: Reports: Hx Ovarian Cysts. 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 Denies: Hx Hysterectomy - Immunizations Immunizations up to date: Yes Hx Diphtheria, Pertussis, Tetanus Vaccination: Yes Hx Pneumococcal Vaccination: 10/26/13 Review of Systems - Review of Systems Constitutional: denies: Fever EENT: No symptoms reported Cardiovascular: denies: Chest pain, Orthopnea, Dyspnea Respiratory: denies: Cough, Hurts to breathe Gastrointestinal: No symptoms reported Genitourinary: No symptoms reported Female Genitourinary: No symptoms reported Musculoskeletal: See HPI Skin: See HPI Hematologic/Lymphatic: No symptoms reported Neurological/Psychological: No symptoms reported Physical Exam - Vital signs Vitals: Temp Pulse Resp BP Pulse Ox 97.4 F 70 26 H 131/70 H 98 07/16/19 04:35 07/16/19 04:35 07/16/19 04:35 07/16/19 04:35 07/16/19 04:35 - Notes Notes: GENERAL: Initially sleeping, easily arousable to verbal stimuli then alert, interacts well. No acute distress. HEAD: Normocephalic, atraumatic. EYES: Pupils equal, round, and reactive to light. Extraocular movements intact. ENT: Oral mucosa moist, tongue midline. NECK: Full range of motion. Supple. Trachea midline. LUNGS: Clear to auscultation bilaterally, no wheezes, rales, or rhonchi. No respiratory distress. Chest: No crepitus felt, no erythema or ecchymosis noted anterior, posterior chest wall. Patient voices anterior lower bilateral ribs are "swollen" I do not appreciate this. HEART: Regular rate and rhythm. No murmur ABDOMEN: Soft, non-tender. Non-distended. Bowel sounds present in all 4 quadrants. EXTREMITIES: Moves all 4 extremities spontaneously. No edema, normal radial and dorsalis pedis pulses bilaterally. No cyanosis. 5 out of 5 strength noted all 4 extremities. BACK: no cervical, thoracic, lumbar midline tenderness. No saddle anesthesia, normal distal neurovascular exam. Generalized right paraspinal lumbar tenderness noted radiating into buttocks. NEUROLOGICAL: Alert and oriented x3. Normal speech. cranial nerves II through XII grossly intact. PSYCH: Normal affect, normal mood. SKIN: Warm, dry, normal turgor. No rashes or lesions noted. Course - Re-evaluation Re-evalutation: 07/16/19 06:06 upon initial assessment patient is sleeping lying sideways in bed with . Patient is easily arousable with verbal stimuli. Once patient is awake she voices her concerns about the continued back pain and "swelling" to her lower ribs. Patient voices she has not followed up with primary care provider or orthopedics since visit to the emergency room. 07/16/19 06:20 Nurse brings to my attention shortly after treating the patient with her Toradol and Lidoderm patch she voices that she would like to leave the emergency department. She does not want to wait for chest x-ray results. Patient voices she does not want to wait for referral for orthopedics. States she has the paperwork from when she was at the emergency department recently for same complaint. Based on the fact patient has left the emergency department prior to evaluation of patient's chest x-ray patient has left AGAINST MEDICAL ADVICE. - Vital Signs Vital signs: Temp Pulse Resp BP Pulse Ox 97.4 F 70 26 H 131/70 H 98 07/16/19 04:35 07/16/19 04:35 07/16/19 04:35 07/16/19 04:35 07/16/19 04:35 Discharge - Discharge Clinical Impression: Lumbar paraspinal muscle spasm, Rib pain Disposition: AGAINST MEDICAL ADVICE Referrals: TAQUERIA GATES MD [Primary Care Provider] - Follow up as needed
--- NOTE | 2019-07-16 08:18 | RADIOLOGY REPORT (SQ) ---
EXAM DESCRIPTION: CHEST 2 VIEWS COMPLETED DATE/TIME: 07/16/2019 6:11 am REASON FOR STUDY: swelling lower anterior ribs COMPARISON: CT abdomen and pelvis 07/12/2019 Two-view chest 09/06/2018 EXAM PARAMETERS: NUMBER OF VIEWS: two views TECHNIQUE: Digital Frontal and Lateral radiographic views of the chest acquired. RADIATION DOSE: NA LIMITATIONS: These are not rib detail films FINDINGS: LUNGS AND PLEURA: No opacities, masses or pneumothorax. No pleural effusion. MEDIASTINUM AND HILAR STRUCTURES: No masses or contour abnormalities. HEART AND VASCULAR STRUCTURES: Heart normal size. No evidence for failure. BONES: No acute findings. HARDWARE: None in the chest. OTHER: No other significant finding. IMPRESSION: NO ACUTE RADIOGRAPHIC FINDING IN THE CHEST. TECHNICAL DOCUMENTATION: JOB ID: [id number] [employer]- All Rights Reserved Reading location - IP/workstation name: [email or web address]
== END 2019-07-16 06:25 | disposition left against medical advice (07) ==
LOC: ER 04:29
DX: M62.830 Muscle spasm of back (principal); M54.9 Dorsalgia, unspecified; X50.9XXA Other and unspecified overexertion or strenuous movements or postures, initial encounter; R07.81 Pleurodynia; E11.9 Type 2 diabetes mellitus without complications; Z88.8 Allergy status to other drugs, medicaments and biological substances; Z53.29 Procedure and treatment not carried out because of patient's decision for other reasons
CPT/HCPCS: 99283; 96374; 71046; J1885; J3490

== ENCOUNTER 2019-07-25 08:57 | Day surgery (SDC) | payer MEDICAID ==
[2019-07-25] MEDS ORDERED: PROPOFOL INJ 200 MG/20 ML VIAL IV ONE (09:28)
[2019-07-25 10:32] VITALS: BP 116/77
--- NOTE | 2019-07-25 13:36 | Operative Report ---
Operative Report DATE OF SURGERY: 07/25/19 Operative Report: The risks, benefits and alternatives of the procedure including the risk of bleeding, perforation requiring surgery have been explained to the patient in detail and informed consent has been obtained. The patient is placed in a left, lateral decubital position. Timeout was called. Propofol medication is administered. Rectal examination is done which did not reveal any masses, tears or fissures. An Olympus videoscope was introduced into the patient's rectum. The scope was then carefully advanced all the way to the cecum. Cecum was identified by the usual anatomical landmarks including the ileocecal valve as well as the appendiceal office. Photodocumentation is obtained. The scope was then sequentially pulled back via the rest segments of the colon including the ascending colon, hepatic flexure, transverse colon, splenic flexure, descending colon finding to the rectosigmoid portions of the colon. Retroflexion maneuvers performed. PREOPERATIVE DIAGNOSIS: Abdominal pain, change in bowel habits POSTOPERATIVE DIAGNOSIS: Right colon inflammation status post biopsy. Very poor prep with solid stool. It is unclear if patient even took the prep. Colonoscopy completed to the cecum OPERATION: Colonoscopy with biopsy SURGEON: JACQUES HAYNES ANESTHESIA: LMAC TISSUE REMOVED OR ALTERED: As noted above. COMPLICATIONS: None. ESTIMATED BLOOD LOSS: None. INTRAOPERATIVE FINDINGS: As noted above. PROCEDURE: Patient tolerated the procedure well. No immediate postprocedure complications are noted. Patient is discharged in good condition. Discharge date 07/25/2019. Discharge diet: Regular. Discharge activity: Regular. 2 to 3-week follow-up to discuss findings. Patient is instructed to call the office or proceed to the emergency room should there be any further problems or questions. Wait on the pathology.
== END 2019-07-25 10:30 | disposition home or self-care (01) ==
LOC: END 08:57
PROVIDERS: ATTEND Internal Medicine Gastroenterology
DX: K52.9 Noninfective gastroenteritis and colitis, unspecified (principal); K21.9 Gastro-esophageal reflux disease without esophagitis; E11.9 Type 2 diabetes mellitus without complications; E05.90 Thyrotoxicosis, unspecified without thyrotoxic crisis or storm; E28.2 Polycystic ovarian syndrome; E66.09 Other obesity due to excess calories; Z68.32 Body mass index [BMI] 32.0-32.9, adult; Z79.899 Other long term (current) drug therapy; Z79.84 Long term (current) use of oral hypoglycemic drugs; Z79.51 Long term (current) use of inhaled steroids
CPT/HCPCS: 45380; 82962; 88305 ×2; 00811; J2704; 811

== ENCOUNTER → 2019-07-26 | Outpatient (CLI) | payer MEDICAID ==
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
== END ==
LOC: OD 11:09
PROVIDERS: ATTEND Family Medicine
DX: M54.42 Lumbago with sciatica, left side (principal)
CPT/HCPCS: 72110

== ENCOUNTER 2019-08-29 18:41 | Emergency (ER) | payer MEDICAID ==
[2019-08-29] MEDS ORDERED: TETRACAINE HCL 0.5% OPH SOLN 4 ML OD ONE (19:30)
[2019-08-29] MEDS ORDERED: IBUPROFEN 800 MG TABLET PO ONE (19:30)
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
[2019-08-29] MEDS ORDERED: IBUPROFEN 800 MG TABLET ONE (22:23)
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
[2019-08-29] MEDS ORDERED: POLYMYXIN B SULFATE/TMP OPH SOLN (10 ML/ER DISP) OD PRN (22:29)
[2019-08-29 22:40] VITALS: BP 141/82
== END 2019-08-29 22:38 | disposition home or self-care (01) ==
LOC: ER 18:41
DX: S05.91XA Unspecified injury of right eye and orbit, initial encounter (principal); W20.8XXA Other cause of strike by thrown, projected or falling object, initial encounter; E11.9 Type 2 diabetes mellitus without complications
CPT/HCPCS: J3490 ×2; 99283

== ENCOUNTER 2019-09-26 23:45 | Emergency (ER) | payer MEDICAID ==
[2019-09-27 00:37] LABS: APPEARANCE,URINE CLEAR; BILIRUBIN,URINE NEGATIVE (NEGATIVE); COLOR,URINE YELLOW; GLUCOSE, URINE NEGATIVE (NEGATIVE); KETONES,URINE NEGATIVE (NEGATIVE); LEUKOCYTE ESTERASE,URINE NEGATIVE (NEGATIVE); NITRITE,URINE NEGATIVE (NEGATIVE); PROTEIN,URINE NEGATIVE (NEGATIVE); URINE SPECIFIC GRAVITY 1.014; UROBILINOGEN,URINE NEGATIVE mg/dL (<2.0)
[2019-09-27 02:13] LABS: ABSOLUTE BASOPHILS # (AUTO) 0.1 10^3/uL (0.0-0.2); ABSOLUTE EOSINOPHILS # (AUTO) 0.3 10^3/uL (0.0-0.6); ABSOLUTE LYMPHOCYTES (AUTO) 2.6 10^3/uL (0.5-4.7); ABSOLUTE MONOCYTES (AUTO) 0.6 10^3/uL (0.1-1.4); BASOPHILS % (AUTO) 0.6 % (0-2); LYMPHOCYTES % (AUTO) 23.9 % (13-45); TOTAL CELLS COUNTED % (AUTO) 100 %
[2019-09-27 02:19] LABS: ABSOLUTE NEUT (AUTO) 7.4 10^3/uL (1.7-8.2); EOSINOPHILS % (AUTO) 2.9 % (0-6); HEMATOCRIT 37.9 % (36.0-47.0); HEMOGLOBIN 12.8 g/dL (12.0-15.5); MEAN CORPUSCULAR HGB CONC 33.9 g/dL (32.0-36.0); MEAN CORPUSCULAR VOLUME 80 fl (80-97); PLATELET COUNT 231 10^3/uL (150-450); RED BLOOD COUNT 4.75 10^6/uL (3.72-5.28); RED CELL DISTRIBUTION WIDTH 15.8 % (11.5-14.0); SEGMENTED NEUTROPHILS % (AUTO) 67.6 % (42-78)
--- NOTE | 2019-09-27 05:08 | RADIOLOGY REPORT (SQ) ---
EXAM DESCRIPTION: US TRANSVAGINAL COMPLETED DATE/TME: 09/27/2019 02:27 CLINICAL HISTORY: 44 years Female, +preg COMPARISON: 11/02/18 TECHNIQUE: Transvaginal. LIMITATIONS: None. FINDINGS: Likely intrauterine gestational sac with decidual reaction and with mean sac diameter of 0.6 cm. No yolk sac. No pole. No cardiac activity. Wilton-rump length is 0.6-cm. 1.0 x 0.4 x 0.3 perigestational hemorrhage. 3.2-cm right ovary, 4.1-cm left ovary, 3.5-cm cervical length, and no free fluid appear otherwise unremarkable. IMPRESSION: Likely intrauterine gestational sac with a small perigestational hemorrhage. No pole and no cardiac activity confirmed. Differential diagnosis includes early viable gestation or ongoing gestational loss. Cannot fully exclude an occult ectopic gestation. Recommend 48 to 72 hours laboratory-sonographic surveillance.
--- NOTE | 2019-09-27 05:30 | ER Document Report ---
ED GI/ - General Chief Complaint: Pelvic Pain Stated Complaint: PELVIC PAIN Time Seen by Provider: 09/27/19 02:19 Primary Care Provider: TAQUERIA GATES MD [Primary Care Provider] - Follow up as needed Mode of Arrival: Ambulatory Information source: Patient Notes: Otherwise healthy 44-year-old female presents emergency department chief complaint of low abdominal cramping in the setting of . Patient reports she had a positive test at home 2 days ago. She reports her last period was on 08/17/2019. She reports mild nausea but denies any vaginal bleeding, vomiting, diarrhea or fevers. TRAVEL OUTSIDE OF THE [place] IN LAST 30 DAYS: No - Related Data Allergies/Adverse Reactions: prednisone Allergy (Verified 07/14/19 12:24) Tachycardia Past Medical History - General Information source: Patient - Social History Smoking Status: Never Smoker Chew tobacco use (# tins/day): No Frequency of alcohol use: None Drug Abuse: None Family History: Arthritis, Hypertension, Malignancy, Thyroid Disfunction Patient has suicidal ideation: No Patient has homicidal ideation: No - Past Medical History Cardiac Medical History: Denies: Hx Coronary Artery Disease, Hx Heart Attack, Hx Hypertension - blood pressure rises during stress Pulmonary Medical History: Reports: Hx Pneumonia - CHILD Denies: Hx Asthma, Hx Bronchitis, Hx COPD Neurological Medical History: Denies: Hx Cerebrovascular Accident, Hx Seizures Endocrine Medical History: Reports: Hx Diabetes Mellitus Type 2, Hx Hyperthyroidism Renal/ Medical History: Reports: Hx Ovarian Cysts. 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 Denies: Hx Hysterectomy - Immunizations Immunizations up to date: Yes Hx Diphtheria, Pertussis, Tetanus Vaccination: Yes Hx Pneumococcal Vaccination: 10/26/13 Review of Systems - Review of Systems Constitutional: No symptoms reported EENT: No symptoms reported Cardiovascular: No symptoms reported Respiratory: No symptoms reported Gastrointestinal: See HPI Genitourinary: No symptoms reported Female Genitourinary: No symptoms reported Musculoskeletal: No symptoms reported Skin: No symptoms reported Hematologic/Lymphatic: No symptoms reported Neurological/Psychological: No symptoms reported Physical Exam - Vital signs Vitals: Temp Pulse Resp BP Pulse Ox 97.9 F 69 20 127/63 H 98 09/26/19 23:57 09/26/19 23:57 09/26/19 23:57 09/26/19 23:57 09/26/19 23:57 - Notes Notes: PHYSICAL EXAMINATION: GENERAL: Well-appearing, well-nourished and in no acute distress. HEAD: Atraumatic, normocephalic. EYES: Pupils equal round and reactive to light, extraocular movements intact, conjunctiva are normal. ENT: Nares patent, oropharynx clear without exudates. Moist mucous membranes. NECK: Normal range of motion, supple without lymphadenopathy LUNGS: Breath sounds clear to auscultation bilaterally and equal. No wheezes rales or rhonchi. HEART: Regular rate and rhythm without murmurs ABDOMEN: Soft, nontender, nondistended abdomen. No guarding, no rebound. No masses appreciated. Female : deferred Musculoskeletal: Normal range of motion, no pitting or edema. No cyanosis. NEUROLOGICAL: Cranial nerves grossly intact. Normal speech, normal gait. Normal sensory, motor exams PSYCH: Normal mood, normal affect. SKIN: Warm, Dry, normal turgor, no rashes or lesions noted. Course - Re-evaluation Re-evalutation: Laboratory 09/27/19 09/27/19 09/27/19 00:23 00:23 02:04 WBC 11.0 H RBC 4.75 Hgb 12.8 Hct 37.9 MCV 80 MCH 27.0 MCHC 33.9 RDW 15.8 H Plt Count 231 Lymph % (Auto) 23.9 [place] % (Auto) 5.0 Eos % (Auto) 2.9 Baso % (Auto) 0.6 Absolute Neuts (auto) 7.4 Absolute Lymphs (auto) 2.6 Absolute Monos (auto) 0.6 Absolute Eos (auto) 0.3 Absolute Basos (auto) 0.1 Seg Neutrophils % 67.6 Beta HCG, Quant Total Beta HCG Urine Color YELLOW Urine Appearance CLEAR Urine pH 5.0 Ur Specific [place] 1.014 Urine Protein NEGATIVE Urine Glucose (UA) NEGATIVE Urine Ketones NEGATIVE Urine Blood NEGATIVE Urine Nitrite NEGATIVE Urine Bilirubin NEGATIVE Urine Urobilinogen NEGATIVE Ur Leukocyte Esterase NEGATIVE Urine WBC (Auto) 1 Urine Bacteria (Auto) TRACE Squamous Epi Cells Auto 1 Urine Mucus (Auto) RARE Urine Ascorbic Acid NEGATIVE Urine HCG, Qual POSITIVE H 09/27/19 02:04 WBC RBC Hgb Hct MCV MCH MCHC RDW Plt Count Lymph % (Auto) [place] % (Auto) Eos % (Auto) Baso % (Auto) Absolute Neuts (auto) Absolute Lymphs (auto) Absolute Monos (auto) Absolute Eos (auto) Absolute Basos (auto) Seg Neutrophils % Beta HCG, Quant 1749.10 H Total Beta HCG POSITIVE Urine Color Urine Appearance Urine pH Ur Specific [place] Urine Protein Urine Glucose (UA) Urine Ketones Urine Blood Urine Nitrite Urine Bilirubin Urine Urobilinogen Ur Leukocyte Esterase Urine WBC (Auto) Urine Bacteria (Auto) Squamous Epi Cells Auto Urine Mucus (Auto) Urine Ascorbic Acid Urine HCG, Qual Obstetrics Ultrasound 09/27/19 02:27 IMPRESSION: Likely intrauterine gestational sac with a small perigestational hemorrhage. No pole and no cardiac activity confirmed. Differential diagnosis includes early viable gestation or ongoing gestational loss. Cannot fully exclude an occult ectopic gestation. Recommend 48 to 72 hours laboratory-sonographic surveillance. Patient to follow-up with [facility] in 48 to 72 hours for repeat labs and ultrasound, if she cannot follow-up with them she will follow-up here for repeat labs. Ultrasound discussed with patient, patient understands that occult ectopic cannot be 100% excluded at this time. Patient verbalizes understanding of importance of close follow-up. ED return precautions discus sed, patient verbalized understanding and agreement with plan. The patient's emergency department workup and current diagnosis were explained to the patient and or family. Follow-up instructions were provided. Medications if prescribed were discussed. Instructions for when to return to the emergency department including specific worrisome symptoms were discussed with the patient and/or family. - Vital Signs Vital signs: Temp Pulse Resp BP Pulse Ox 98.5 F 77 16 94/56 L 96 09/27/19 05:33 09/27/19 05:33 09/27/19 05:33 09/27/19 05:33 09/27/19 05:33 - Laboratory Result Diagrams: 09/27/19 02:04 Laboratory results interpreted by me: 09/27/19 09/27/19 09/27/19 00:23 02:04 02:04 WBC 11.0 H RDW 15.8 H Beta HCG, Quant 1749.10 H Urine HCG, Qual POSITIVE H Discharge - Discharge Clinical Impression: Lower abdominal pain, Elevated serum hCG Qualifiers: Weeks of gestation: less than 8 weeks Qualified Code(s): Z3A.01 - Less than 8 weeks gestation of Condition: Stable Disposition: HOME, SELF-CARE Additional Instructions: As discussed it is very important for you to follow-up to have repeat blood work and repeat ultrasound done. Your hormone levels were in the appropriate range for the estimated 5-week however the ultrasound was not very clear on what they could see. This could mean early or it could mean miscarriage. Please follow-up with the health department and/or [facility]. Return to the emergency department with any new or worsening symptoms. Prescriptions: Metoclopramide HCl [Reglan 10 mg Tablet] 1 - 2 tab PO ASDIR PRN #25 tablet PRN Reason: Referrals: TAQUERIA GATES MD [Primary Care Provider] - Follow up as needed
[2019-09-27 05:38] VITALS: BP 94/56
== END 2019-09-27 05:38 | disposition home or self-care (01) ==
LOC: ER 23:45
DX: O26.891 Other specified pregnancy related conditions, first trimester (principal); R10.2 Pelvic and perineal pain; R10.30 Lower abdominal pain, unspecified; R11.0 Nausea; Z3A.01 Less than 8 weeks gestation of pregnancy
CPT/HCPCS: 36415; 76817; 81001; 81025; 84702; 85025; 99284

== ENCOUNTER 2019-11-16 06:11 | Day surgery (SDC) | payer MEDICAID ==
[~2019-11-16 06:11] MED LIST changes: -ACETAMINOPHEN 325 MG TABLET PO PRN; -CEFOXITIN SODIUM 2 GM in DEXTROSE 5%-WATER 100 ML IV PRN; +DOXYCYCLINE HYCLATE 100 MG in DEXTROSE 5%-WATER 250 ML IV PRN; -LACTATED RINGERS 1000 ML IV PRN; -LIDOCAINE 0.5% INJ-PF (5 MG/ML) 50 ML SDV SUBCUT PRN; -MIDAZOLAM 2 MG/2 ML INJ IV PRN; -ROCURONIUM BROMIDE INJ 50 MG/5 ML VIAL IV ONE; -SUCCINYLCHOLINE CHLORIDE INJ 200 MG/10 ML VIAL ONE
[2019-11-16] MEDS ORDERED: FENTANYL CITRATE INJ/PF 100 MCG/2 ML AMPUL ONE ×2 (06:44→09:44)
[2019-11-16] MEDS ORDERED: DEXAMETHASONE SOD PHOSPHATE INJ 4 MG/1 ML VIAL ONE (06:45)
[2019-11-16] MEDS ORDERED: MIDAZOLAM 2 MG/2 ML INJ ONE (06:45)
[2019-11-16] MEDS ORDERED: ONDANSETRON HCL INJ/PF 4 MG/2 ML SDV ONE (06:45)
[2019-11-16] MEDS ORDERED: PROPOFOL INJ 200 MG/20 ML VIAL IV ONE (06:45)
[2019-11-16] MEDS ORDERED: DOXYCYCLINE HYCLATE 100 MG in DEXTROSE 5%-WATER 250 ML IV PRN (06:59)
[2019-11-16 07:19] LABS: HEMATOCRIT 39.9 % (36.0-47.0); HEMOGLOBIN 14.1 g/dL (12.0-15.5); MEAN CORPUSCULAR HEMOGLOBIN 28.6 pg (27.0-33.4); MEAN CORPUSCULAR HGB CONC 35.2 g/dL (32.0-36.0); MEAN CORPUSCULAR VOLUME 81 fl (80-97); PLATELET COUNT 210 10^3/uL (150-450); RED BLOOD COUNT 4.92 10^6/uL (3.72-5.28); RED CELL DISTRIBUTION WIDTH 14.2 % (11.5-14.0); WHITE BLOOD COUNT 9.8 10^3/uL (4.0-10.5)
[2019-11-16 08:04] LABS: APPEARANCE,URINE SLIGHTLY-CLOUDY; BILIRUBIN,URINE NEGATIVE (NEGATIVE); COLOR,URINE YELLOW; GLUCOSE, URINE NEGATIVE (NEGATIVE); KETONES,URINE NEGATIVE (NEGATIVE); LEUKOCYTE ESTERASE,URINE NEGATIVE (NEGATIVE); NITRITE,URINE NEGATIVE (NEGATIVE); PROTEIN,URINE NEGATIVE (NEGATIVE); URINE SPECIFIC GRAVITY 1.032; UROBILINOGEN,URINE NEGATIVE mg/dL (<2.0)
[2019-11-16] MEDS ORDERED: PROMETHAZINE HCL INJ 25 MG/1 ML VIAL IV PRN (08:45)
[2019-11-16] MEDS ORDERED: DIPHENHYDRAMINE HCL 50 MG/ML VIAL IV PRN (08:45)
[2019-11-16] MEDS ORDERED: MEPERIDINE HCL/PF INJ 25 MG/1 ML DISP.SYRIN IV PRN (08:45)
[2019-11-16] MEDS ORDERED: FENTANYL CITRATE INJ/PF 100 MCG/2 ML AMPUL IV PRN ×3 (08:45)
--- NOTE | 2019-11-16 09:22 | Operative Report ---
Operative Report DATE OF SURGERY: 11/16/19 PREOPERATIVE DIAGNOSIS: Missed POSTOPERATIVE DIAGNOSIS: same as above OPERATION: Suction dilation and curettage SURGEON: LES SHELTON ANESTHESIA: GA TISSUE REMOVED OR ALTERED: Products of conception COMPLICATIONS: None ESTIMATED BLOOD LOSS: 200cc INTRAOPERATIVE FINDINGS: Uterus sounded to 11 cm and was palpated at approximately 10-12 wks. Products of conception noted in suction curettage PROCEDURE: IV fluids: Crystalloid IV fluids per anesthesia record Disposition: To recovery room in stable condition Description of the procedure: The patient was taken to the operating room where monitored anesthesia was administered and found to be adequate. She was then placed in the dorsol lithotomy position and prepped and draped in the usual sterile fashion. A timeout was taken. A weighted speculum was placed in the vagina and a Butler retractor was used to bring the cervix into good view. A single-tooth tenaculum was used to grasp the anterior lip of the cervix and the cervix was serially dilated. The uterus sounded to approximately 11 cm and the cervix was serially dilated to approximately 10 mm. The #10 suction curette was inserted and using suction, the products of conception were removed. The suction curette was removed and a regular curette was advanced to the uterine fundus. Gentle curettage was done in a circumferential manner until a gritty texture was noted. The curette was removed and suction curette re-inserted to the fundus. Suction curettage done once more. The tissue obtained will be sent to the lab as products of conception. Part of sample sent fresh for Chromosomes. The procedure was then terminated all instrument to remove the patient's vagina. The patient tolerated the procedure well all instrument sponge and needle counts were correct x2 for the procedure she will proceed to recovery room in stable condition
--- NOTE | 2019-11-16 09:25 | Discharge Summary ---
Discharge Summary (SDC) - Discharge Final Diagnosis: [id number] Date of Surgery: 11/16/19 Discharge Date: 11/16/19 Condition: Stable Treatment or Instructions: No tampons or intercourse (Nothing in vagina) for 6 weeks. Call with bleeding greater than 2 large pads per hour, fever, chills, nausea/vomiting that will not resolv, voiding difficu;ties Prescriptions: Metronidazole [Flagyl 500 mg Tablet] 500 mg PO Q12 5 Days #10 tablet Ibuprofen [Ibu] 800 mg PO Q8 PRN 30 Days #30 tablet PRN Reason: Referrals: TAQUERIA GATES MD [Primary Care Provider] - Discharge Diet: As Tolerated Respiratory Treatments at Home: Deep Breathing/Coughing Discharge Activity: Activity As Tolerated, No Driving, No Lifting Over 10 Pounds, Pelvic Rest, Slowly Increase Activity, No tub bath, Walk Frequently Home Care Assistance: None Needed Report the Following to Your Physician Immediately: Shortness of Breath, Nausea, Vomiting, Increase in Pain, Fever over 101 Degrees, Unusual Bleeding, Swelling, Increased Soreness, Drainage-Foul Smelling, Large Clots, Visual Disturbance, Wheezing, Seizure, IV Site Infection Signs
[2019-11-16] MEDS ORDERED: ACETAMINOPHEN 1,000 MG/100 ML RTUPB IV ONE (09:44)
[2019-11-16 12:28] LABS: CHLAM PCR NOT DETECTED (NOT DETECT)
[2019-11-16 12:40] VITALS: BP 126/73
== END 2019-11-16 11:30 | disposition home or self-care (01) ==
LOC: OROUT 06:11
PROVIDERS: ATTEND Obstetrics & Gynecology
DX: O02.1 Missed abortion (principal); E11.9 Type 2 diabetes mellitus without complications; Z86.718 Personal history of other venous thrombosis and embolism; Z79.84 Long term (current) use of oral hypoglycemic drugs; Z88.8 Allergy status to other drugs, medicaments and biological substances
CPT/HCPCS: 36415; 82947; 85027; 81001; 87491; 87591; 88305 ×2; 01965; 59820; J2250; J1100; J3490; J3010; J2405; J7060; J2704; J0131; 1965

== ENCOUNTER 2020-08-20 13:39 | Observation (INO) | payer MEDICAID ==
--- NOTE | 2020-08-20 14:19 | PDOC H&P ---
History of Present Illness Admission Date/PCP: 08/20/20 14:01 TAQUERIA GATES MD History of Present Illness: ARTEM SCHMITT is a 45 year old female @ approximately 31 weeks gestation with uncontrolled T2DM. she was sent from [facility] office for admission for glucose control with a weight based regimen which Dr. Marcos calculated for NPH/regular. D/W patient and she is willing to be admitted and understands needs for compliance with diabetic diet and glucose control. 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 Denies: Hysterectomy Social History Information Source: Patient Lives with: Spouse/Significant other Smoking Status: Unknown if Ever Smoked Electronic Cigarette use?: No Frequency of Alcohol Use: None Hx Recreational Drug Use: No Drugs: None Hx Prescription Drug Abuse: No Family History Family History: Arthritis, Hypertension, Malignancy, Thyroid Disfunction Parental Family History Reviewed: Yes Children Family History Reviewed: NA Sibling(s) Family History Reviewed.: Yes Medication/Allergy Home Medications: Metformin HCl [Metformin HCl ER] 500 mg PO TID 08/24/18 Ibuprofen [Ibu] 800 mg PO Q8 PRN 30 Days #30 tablet 11/16/19 Metronidazole [Flagyl 500 mg Tablet] 500 mg PO Q12 5 Days #10 tablet 11/16/19 Allergies/Adverse Reactions: prednisone Allergy (Verified 11/16/19 07:53) Tachycardia Review of Systems Constitutional: PRESENT: as per HPI Physical Exam - Physical Exam General appearance: PRESENT: no acute distress, cooperative, obese Head exam: PRESENT: atraumatic - Obstetrical Exam Fundal Height: 1/u - 2/u Tender: No Assessment & Plan - Diagnosis (1) Diabetes in Qualifiers: Trimester: third trimester Is this a current diagnosis for this admission?: Yes (2) Qualifiers: Weeks of gestation: 31 weeks Qualified Code(s): Z3A.31 - 31 weeks gestation of Is this a current diagnosis for this admission?: Yes - Time Time Spent: 30 to 50 Minutes Critical Time spent with patient: 15-24 minutes Medications reviewed and adjusted accordingly: Yes Anticipated Discharge Disposition: Home, Self Care Anticipated Discharge Timeframe: within 48 hours - Inpatient Certification Based on my medical assessment, after consideration of the patient's comorbidities, presenting symptoms, or acuity I expect that the services needed warrant INPATIENT care.: Yes I certify that my determination is in accordance with my understanding of Medicare's requirements for reasonable and necessary INPATIENT services [42 CFR 412.3e].: Yes Medical Necessity: Need Close Monitoring Due to Risk of Patient Decompensation - Plan Summary Plan Summary: NST daily, Start injectable insulin weight based with NPH 30 unit and Regular 18 units q am with breakfast. Will give regular insulin 13 units q hs with dinner and 13 units NPH @ 10 pm. Will adjust as needed and continue with 4 times a day accucheck with fasting and 2 hours postprandial. Will obtain a 24 hour urine protein and new HgbA1C.
[2020-08-20 15:51] LABS: HEMATOCRIT 35.3 % (36.0-47.0); HEMOGLOBIN 12.2 g/dL (12.0-15.5); MEAN CORPUSCULAR HEMOGLOBIN 27.1 pg (27.0-33.4); MEAN CORPUSCULAR HGB CONC 34.5 g/dL (32.0-36.0); MEAN CORPUSCULAR VOLUME 79 fl (80-97); PLATELET COUNT 188 10^3/uL (150-450); RED CELL DISTRIBUTION WIDTH 13.3 % (11.5-14.0)
[2020-08-20 16:14] LABS: ALBUMIN 3.6 g/dL (3.5-5.0); ALKALINE PHOSPHATASE 117 U/L (38-126); ANION GAP 11 (5-19); ASPARTATE AMINO TRANSFERASE 19 U/L (14-36); BILIRUBIN,DIRECT 0.2 mg/dL (0.0-0.4); BILIRUBIN,TOTAL 0.3 mg/dL (0.2-1.3); BLOOD UREA NITROGEN 8 mg/dL (7-20); CALCIUM 9.1 mg/dL (8.4-10.2); CARBON DIOXIDE 18 mmol/L (22-30); CHLORIDE 108 mmol/L (98-107); GLUCOSE 102 mg/dL (75-110); POTASSIUM 3.9 mmol/L (3.6-5.0); TOTAL PROTEIN 6.4 g/dL (6.3-8.2)
[2020-08-20] MEDS: INSULIN REG, HUMAN 100 UNIT/ML 3 ML VIAL (PYX) SUBCUT SCH (16:44)
[2020-08-20] MEDS ORDERED: INSULIN NPH (ISOPHANE), HUMAN 100 UNIT/ML 3 ML SUBCUT SCH (22:00)
[2020-08-21] MEDS ORDERED: INFLUENZA QUAD (6MOS+) 2020-21 VAC 0.5 ML SYR IM ONE (08:00)
[2020-08-21] MEDS ORDERED: INSULIN NPH (ISOPHANE), HUMAN 100 UNIT/ML 3 ML SUBCUT SCH (08:00)
[2020-08-21] MEDS: INSULIN REG, HUMAN 100 UNIT/ML 3 ML VIAL (PYX) SUBCUT SCH ×2 (08:07→17:43)
[2020-08-21] MEDS: INSULIN NPH (ISOPHANE), HUMAN 100 UNIT/ML 3 ML SUBCUT SCH ×2 (08:09→17:41)
--- NOTE | 2020-08-21 09:34 | PDOC PROGRESS REPORT ---
Subjective-OB Progress Note for:: 08/21/20 Subjective: Went by to check on pt, hsb at BS, wants to go home, Raheel Alford adjusted her meds, told her [place] carpenter make the decision to let her go home hen BS were stable Physical Exam (OB) Vital Signs: Temp Pulse Resp BP Pulse Ox 97.6 F 71 16 104/61 98 08/21/20 07:49 08/21/20 07:49 08/21/20 07:49 08/21/20 07:49 08/21/20 07:49 Intake & Output 08/20/20 08/21/20 08/22/20 06:59 06:59 06:59 Intake Total 1000 Balance 1000 Weight 91.1 kg - Maternal Morbidity 59. Maternal Morbidity (serious complications experinced by the mother associat ed with labor and delivery: None of the above - Abdomen Hernia Present: No Fundal Height: 1/u - 2/u Objective-Diagnostic Laboratory: 08/20/20 15:33 08/20/20 15:33 08/20/20 08/20/20 15:33 15:33 WBC 10.0 RBC 4.50 Hgb 12.2 Hct 35.3 L MCV 79 L MCH 27.1 MCHC 34.5 RDW 13.3 Plt Count 188 Sodium 136.5 L Potassium 3.9 Chloride 108 H Carbon Dioxide 18 L Anion Gap 11 BUN 8 Creatinine 0.33 L Est GFR ( Amer) > 60 Glucose 102 Calcium 9.1 Total Bilirubin 0.3 AST 19 Alkaline Phosphatase 117 Total Protein 6.4 Albumin 3.6 Assessment and Plan(PN) - Assessment and Plan (1) Diabetes in Qualifiers: Diabetes in type: gestational Trimester: third trimester Is this a current diagnosis for this admission?: Yes (2) Qualifiers: Weeks of gestation: 31 weeks Qualified Code(s): Z3A.31 - 31 weeks gestation of Is this a current diagnosis for this admission?: Yes - Time Spent with Patient Time with patient: Less than 15 minutes Medications reviewed and adjusted accordingly: Yes - Disposition Anticipated Discharge Disposition: Home, Self Care Anticipated Discharge Timeframe: within 48 hours
[2020-08-21 21:08] LABS: 24 HOUR URINE PROTEIN RESULT 162 mg/day (42-225)
[2020-08-22] MEDS: INSULIN REG, HUMAN 100 UNIT/ML 3 ML VIAL (PYX) SUBCUT SCH ×2 (09:09→17:35)
[2020-08-22] MEDS: INSULIN NPH (ISOPHANE), HUMAN 100 UNIT/ML 3 ML SUBCUT SCH ×2 (09:11→17:34)
--- NOTE | 2020-08-22 20:19 | PDOC PROGRESS REPORT ---
Subjective Progress Note for:: 08/22/20 Subjective:: Feeling good. States good FM. No issues. She is anxious to go home. DIscussed DM diet. WHen I came to talk with her this am she had two regular sodas on her table and a chocolate muffin. She states the muffin was her husbands and that she did drink some of the regular soda just prior to her accucheck mid morning which was 199 . I discussed with her that regular soda should not be part of her diet as it is flavored sugar. Discussed that she should be having 3 meals daily and a small snack preferably with protein between meals and before bed. It seemed this was news to her. Discussed DM and her baby. Reason For Visit: @ 31 WEEKS,UNCONTROLLED T2DM Physical Exam - Physical Exam Vital Signs: Temp Pulse Resp BP Pulse Ox 98.1 F 77 16 114/67 97 08/22/20 10:00 08/22/20 07:48 08/22/20 07:48 08/22/20 07:48 08/22/20 07:48 Intake & Output 08/21/20 08/22/20 08/23/20 06:59 06:59 06:59 Intake Total 1000 680 900 Balance 1000 680 900 Weight 91.1 kg 90 kg General appearance: PRESENT: no acute distress, cooperative Respiratory exam: PRESENT: clear to auscultation gera Cardiovascular exam: PRESENT: RRR, +S1, +S2 GI/Abdominal exam: PRESENT: normal bowel sounds, soft Extremities exam: PRESENT: full ROM. ABSENT: calf tenderness, clubbing, pedal edema Musculoskeletal exam: PRESENT: ambulatory Neurological exam: PRESENT: alert, awake, oriented to person, oriented to place, oriented to time, oriented to situation, CN II-XII grossly intact. ABSENT: motor sensory deficit Psychiatric exam: PRESENT: appropriate affect, normal mood. ABSENT: homicidal ideation, suicidal ideation Skin exam: PRESENT: dry, intact, warm. ABSENT: cyanosis, rash Result Laboratory Results: 08/20/20 15:33 08/20/20 15:33 08/20/20 20:00 Ur 24 Hour Volume 2020 Ur Total Protein 24 Hr 162 Assessment & Plan - Diagnosis (1) Diabetes in Qualifiers: Diabetes in type: gestational Trimester: third trimester Is this a current diagnosis for this admission?: Yes (2) Qualifiers: Weeks of gestation: 31 weeks Qualified Code(s): Z3A.31 - 31 weeks gestation of Is this a current diagnosis for this admission?: Yes - Time Time Spent with patient: 15-24 minutes Medications reviewed and adjusted accordingly: Yes Anticipated discharge: Home Anticipated DC Timeframe: within 24 hours - Plan Summary Plan Summary: 45 yo patient at approximately 31 weeks EGA with poorly DM II. Admitted per Dr. Delgado instruction to better control glucoses -A1 c on admit was 5.7 -VSS -TOlerating DM diet but hospital diet did not have snacks between meals and at bedtime. Discussed drinking soda with sugar as well as other GDM recs. Asked her nurse to be sure she is getting the aforementioned snacks. I am going to increase the insulin she is taking in AM and will monitor for another 24 hr to see if we can get better control. -Continue accuchecks fasting and 2 hr pp -PNV daily -Intermittent montioring daily
[2020-08-22] MEDS: METFORMIN HCL 500 MG TABLET PO SCH (20:27)
--- NOTE | 2020-08-23 07:25 | PDOC DISCHARGE SUMMARY ---
Impression - Admit/DC Date/PCP Admission Date/Primary Care Provider: 08/20/20 14:01 TAQUERIA GATES MD Discharge Date: 08/23/20 - Discharge Diagnosis (1) Diabetes in Is this a current diagnosis for this admission?: Yes (2) Is this a current diagnosis for this admission?: Yes - Additional Information Resuscitation Status: Full Code - Follow up with [facility] and [facility] for appointments two times a week: One day a week with [facility] and one day a week at [facility] for NST Discharge Diet: As Tolerated Discharge Activity: Activity As Tolerated, Walk Frequently Referrals: TAQUERIA GATES MD [Primary Care Provider] - Prescriptions: Insulin Regular, Human [Humulin R (Reg) Insulin 100 unit/mL] 10 unit SUBCUT ACBRKFST 30 Days #100 unit Insulin Regular, Human [Humulin R (Reg) Insulin 100 unit/mL] 13 unit SUBCUT ACSUPPER 30 Days #100 unit Insulin NPH Human Isophane [Novolin N Flexpen] 34 unit SQ DAILY 39 Days #100 units Insulin Aspart [Novolog Flexpen] 15 unit SQ ACSUPPER 30 Days #1 insuln.pen Home Medications: Metformin HCl [Glucophage 500 mg Tablet] 500 mg PO BIDACBS 08/20/20 Insulin Aspart [Novolog Flexpen] 15 unit SQ ACSUPPER 30 Days #1 insuln.pen 08/23/20 Insulin NPH Human Isophane [Novolin N Flexpen] 34 unit SQ DAILY 39 Days #100 units 08/23/20 Insulin Regular, Human [Humulin R (Reg) Insulin 100 unit/mL] 10 unit SUBCUT ACBRKFST 30 Days #100 unit 08/23/20 Insulin Regular, Human [Humulin R (Reg) Insulin 100 unit/mL] 13 unit SUBCUT ACSUPPER 30 Days #100 unit 08/23/20 Metformin HCl [Glucophage 500 mg Tablet] 1,000 mg PO BIDACBS tablet 08/23/20 History of Present Illiness History of Present Illness: ARTEM SCHMITT is a 45 year old female Physical Exam - Physical Exam Vital Signs: Temp Pulse Resp BP Pulse Ox 97.4 F 72 17 112/62 99 08/22/20 20:49 08/22/20 20:49 08/22/20 20:49 08/22/20 20:49 08/22/20 20:49 Intake & Output 08/22/20 08/23/20 08/24/20 06:59 06:59 06:59 Intake Total 680 1700 Balance 680 1700 Weight 90 kg Results Laboratory Results: WBC 10.0 10^3/uL (4.0-10.5) 08/20/20 15:33 RBC 4.50 10^6/uL (3.72-5.28) 08/20/20 15:33 Hgb 12.2 g/dL (12.0-15.5) 08/20/20 15:33 Hct 35.3 % (36.0-47.0) L 08/20/20 15:33 MCV 79 fl (80-97) L 08/20/20 15:33 MCH 27.1 pg (27.0-33.4) 08/20/20 15:33 MCHC 34.5 g/dL (32.0-36.0) 08/20/20 15:33 RDW 13.3 % (11.5-14.0) 08/20/20 15:33 Plt Count 188 10^3/uL (150-450) 08/20/20 15:33 Sodium 136.5 mmol/L (137-145) L 08/20/20 15:33 Potassium 3.9 mmol/L (3.6-5.0) 08/20/20 15:33 Chloride 108 mmol/L (98-107) H 08/20/20 15:33 Carbon Dioxide 18 mmol/L (22-30) L 08/20/20 15:33 Anion Gap 11 (5-19) 08/20/20 15:33 BUN 8 mg/dL (7-20) 08/20/20 15:33 Creatinine 0.33 mg/dL (0.52-1.25) L 08/20/20 15:33 Est GFR ( Amer) > 60 (>60) 08/20/20 15:33 Est GFR (MDRD) Non-Af > 60 (>60) 08/20/20 15:33 Glucose 102 mg/dL (75-110) 08/20/20 15:33 POC Glucose 101 mg/dL (70-110) 08/23/20 06:32 Hemoglobin A1c % 5.7 % (4.7-6.0) 08/20/20 15:33 Calcium 9.1 mg/dL (8.4-10.2) 08/20/20 15:33 Total Bilirubin 0.3 mg/dL (0.2-1.3) 08/20/20 15:33 Direct Bilirubin 0.2 mg/dL (0.0-0.4) 08/20/20 15:33 Neonat Total Bilirubin Not Reportable 08/20/20 15:33 Neonat Direct Bilirubin Not Reportable 08/20/20 15:33 Neonat Indirect Bili Not Reportable 08/20/20 15:33 AST 19 U/L (14-36) 08/20/20 15:33 ALT 11 U/L (<35) 08/20/20 15:33 Alkaline Phosphatase 117 U/L (38-126) 08/20/20 15:33 Total Protein 6.4 g/dL (6.3-8.2) 08/20/20 15:33 Albumin 3.6 g/dL (3.5-5.0) 08/20/20 15:33 Ur 24 Hour Volume 2020 mL 08/20/20 20:00 Ur Total Protein 24 Hr 162 mg/day (42-225) 08/20/20 20:00 Urine Total Protein 8.0 mg/dL (<12) 08/20/20 20:00 Stroke Is this a Stroke Patient?: No Acute Heart Failure Is this a Heart Failure Patient?: No
[2020-08-23 08:00] VITALS: BP 103/69
[2020-08-23] MEDS ORDERED: INSULIN NPH (ISOPHANE), HUMAN 100 UNIT/ML 3 ML SUBCUT SCH (08:00)
[2020-08-23] MEDS: METFORMIN HCL 500 MG TABLET PO SCH (09:38)
[2020-08-23] MEDS: INSULIN REG, HUMAN 100 UNIT/ML 3 ML VIAL (PYX) SUBCUT SCH (09:39)
== END 2020-08-23 10:10 | disposition home or self-care (01) ==
LOC: LC 13:39 → INTOOBSV 14:01 → LR 14:01 → 2S 15:11
PROVIDERS: ADMIT Obstetrics & Gynecology; ATTEND Obstetrics & Gynecology
DX: O24.414 Gestational diabetes mellitus in pregnancy, insulin controlled (principal); Z23 Encounter for immunization; Z3A.31 31 weeks gestation of pregnancy
CPT/HCPCS: 99281; 59025; 36415; 82962 ×4; 84156; 85027; 80053; 83036; 90686; G0378 ×3; G0008; J1815 ×7; J3490 ×2; 90471

== ENCOUNTER → 2020-10-08 | Outpatient (CLI) | payer MEDICAID ==
[2020-10-08 11:51] LABS: APPEARANCE,URINE SLIGHTLY-CLOUDY; BILIRUBIN,URINE NEGATIVE (NEGATIVE); COLOR,URINE YELLOW; GLUCOSE, URINE NEGATIVE (NEGATIVE); KETONES,URINE NEGATIVE (NEGATIVE); LEUKOCYTE ESTERASE,URINE LARGE (NEGATIVE); NITRITE,URINE NEGATIVE (NEGATIVE); PROTEIN,URINE NEGATIVE (NEGATIVE); URINE SPECIFIC GRAVITY 1.017; UROBILINOGEN,URINE NEGATIVE mg/dL (<2.0)
[2020-10-08 11:51] LABS: ABSOLUTE LYMPHOCYTES (AUTO) 1.2 10^3/uL (0.5-4.7); ABSOLUTE MONOCYTES (AUTO) 0.4 10^3/uL (0.1-1.4); ABSOLUTE NEUT (AUTO) 8.9 10^3/uL (1.7-8.2); BASOPHILS % (AUTO) 0.1 % (0-2); EOSINOPHILS % (AUTO) 0.4 % (0-6); HEMATOCRIT 34.9 % (36.0-47.0); HEMOGLOBIN 11.7 g/dL (12.0-15.5); LYMPHOCYTES % (AUTO) 11.3 % (13-45); MEAN CORPUSCULAR HEMOGLOBIN 25.8 pg (27.0-33.4); MEAN CORPUSCULAR HGB CONC 33.6 g/dL (32.0-36.0); MEAN CORPUSCULAR VOLUME 77 fl (80-97); PLATELET COUNT 161 10^3/uL (150-450); RED BLOOD COUNT 4.55 10^6/uL (3.72-5.28); RED CELL DISTRIBUTION WIDTH 14.5 % (11.5-14.0); SEGMENTED NEUTROPHILS % (AUTO) 84.2 % (42-78); TOTAL CELLS COUNTED % (AUTO) 100 %; WHITE BLOOD COUNT 10.6 10^3/uL (4.0-10.5)
[2020-10-08 12:20] LABS: URINE AMPHETAMINES SCREEN NEGATIVE; URINE BARBITURATES SCREEN NEGATIVE; URINE BENZODIAZEPINES SCREEN NEGATIVE; URINE COCAINE SCREEN NEGATIVE; URINE MARIJUANA (THC) SCREEN NEGATIVE; URINE METHADONE SCREEN NEGATIVE; URINE PHENCYCLIDINE SCREEN NEGATIVE
== END ==
LOC: OD 10:54 → MERGE 10-11 07:45 → EDSTATUS 10-11 07:45
PROVIDERS: ATTEND Obstetrics & Gynecology Gynecology
DX: Z01.812 Encounter for preprocedural laboratory examination (principal); Z20.828 Contact with and (suspected) exposure to other viral communicable diseases; Z02.83 Encounter for blood-alcohol and blood-drug test
CPT/HCPCS: 85025; 87635; 81001; 80307; C9803; 36415; 86850; 86870; 86900; 86901

== ENCOUNTER 2020-10-11 05:08 | Inpatient (IN) | payer MEDICAID ==
[2020-10-11] MEDS ORDERED: CEFAZOLIN 2 GM/D5W RTU 2 GM/50 ML RTUPB IV PRN (05:57)
[2020-10-11] MEDS ORDERED: RINGERS SOLUTION,LACTATED 1,000 ML IV PRN ×2 (05:59→08:44)
[2020-10-11] MEDS ORDERED: RINGERS SOLUTION,LACTATED 1,000 ML IV ONE (06:00)
[2020-10-11] MEDS ORDERED: MIDAZOLAM 2 MG/2 ML INJ ONE (07:23)
[2020-10-11] MEDS ORDERED: PHENYLEPHRINE HCL INJ/PF 10 MG/1 ML SDV ONE (07:23)
[2020-10-11] MEDS ORDERED: CITRIC ACID/SODIUM CITRATE ORAL SOLN 15 ML UDCUP ONE (07:23)
[2020-10-11] MEDS ORDERED: OXYTOCIN 10 UNIT/ML VIAL ONE (07:23)
[2020-10-11] MEDS ORDERED: ONDANSETRON HCL INJ/PF 4 MG/2 ML SDV ONE (07:24)
[2020-10-11] MEDS ORDERED: DIPHENHYDRAMINE HCL 50 MG/ML VIAL IV PRN (08:34)
[2020-10-11] MEDS ORDERED: FENTANYL CITRATE INJ/PF 100 MCG/2 ML AMPUL IV PRN ×3 (08:34)
[2020-10-11] MEDS ORDERED: PROMETHAZINE HCL INJ 25 MG/1 ML VIAL IV PRN ×2 (08:34→08:44)
--- NOTE | 2020-10-11 08:42 | PDOC DELIVERY SUMMARY ---
Delivery Summary - Maternal Hx : V Hx Total # of Abortions (Sponateous & Elective): 2 Risk Factors: Other Ruptured Membranes: AROM Fluids: Clear - Delivery Labor: Not In Labor Presentation: Vertex Heart Rate Monitoring: Externally Support Person Present: Yes : Scheduled Placenta: Within Normal Limits
[2020-10-11] MEDS ORDERED: ACETAMINOPHEN 1,000 MG/100 ML RTUPB IV PRN (08:44)
[2020-10-11] MEDS ORDERED: MEASLES,MUMPS&RUBELLA VACC/PF 0.5 ML VIAL SUBCUT PRN (08:44)
[2020-10-11] MEDS ORDERED: SIMETHICONE 80 MG TAB.CHEW PO PRN (08:44)
[2020-10-11] MEDS ORDERED: DIPH/PERTUSS(ACELL)/TETANUS VAC/PF 0.5 ML SYR (>=10YO) IM PRN (08:44)
[2020-10-11] MEDS ORDERED: MORPHINE SULFATE 10 MG/ML INJ IM PRN (08:44)
[2020-10-11] MEDS ORDERED: OXYTOCIN/0.9 % SODIUM CHLORIDE 30 UNIT/500 ML RTUINJ IV PRN (08:44)
--- NOTE | 2020-10-11 08:44 | Operative Report ---
Operative Report DATE OF SURGERY: 10/11/20 PREOPERATIVE DIAGNOSIS: IUP term with GDM fibroids anterior placenta POSTOPERATIVE DIAGNOSIS: Same OPERATION: Low transverse section delivery of viable SURGEON: EV ORTEGA ANESTHESIA: Spinal COMPLICATIONS: None ESTIMATED BLOOD LOSS: Approximately 1200 cc PROCEDURE: The patient was taken to the operating room where spinal anesthesia was obtained and found to be adequate. She was then prepped and draped in the normal sterile fashion and placed in the dorsal supine position with a leftward tilt. A Pfannenstiel skin incision was then made and carried through to the underlying layers of the fascia with the scalpel. The fascia was incised in the midline and the incision extended laterally with the Coffey scissors. The superior aspect of the fascial incision was then grasped with [place] clamps elevated and the underlying rectus muscles dissected off bluntly. Attention was then turned to the inferior aspect of the fascial incision which in a similar fashion was grasped, tented up with Jazmine clamps, and the rectus muscles dissected off bluntly. The rectus muscles were then in the midline and the peritoneum at the amount identified and entered bluntly. The peritoneal incision was then extended superiorly and inferiorly with good visualization of the bladder. [The bladder blade was inserted and the vesicouterine peritoneum identified grasped with [place] pickups and entered sharply with the Metzenbaum scissors. His incision was then extended laterally with the Metzenbaum scissors and a bladder flap created digitally. The bladder blade was then reinserted and the lower uterine segment incised in a transverse fashion with the scalpel. The uterine incision was then extended bluntly. The bladder blade was removed and the 's head was delivered from cephalic presentation atraumatically. The nose and mouth were suctioned and the cord doubly clamped and cut. And the was handed off to waiting pediatricians. The placenta was then delivered manully and the uterus exteriorized and cleared of all clots and debris. The uterine incision was then repaired with 1-0 Vicryl in a running locked fashion. A second layer of the same suture was used to obtain hemostasis via imbrication of the initial layer. The uterus was returned to the patient's abdomen. The gutters were cleared of all clots and debris. All operative sites were noted to be hemostatic. The fascia was reapproximated with 0 Vicryl in a running fashion from each lateral edge to the midline. The patient tolerated the procedure well. Sponge lap needle and instrument counts are correct -2. 2 g of Ancef were given prior to skin incision. The patient was taken to the recovery area awake and in stable condition.
[2020-10-11] MEDS ORDERED: OXYTOCIN/0.9 % SODIUM CHLORIDE 30 UNIT/500 ML RTUINJ ONE (09:30)
[2020-10-11] MEDS ORDERED: ACETAMINOPHEN 1,000 MG/100 ML RTUPB IV ONE (09:31)
[2020-10-11] MEDS ORDERED: MISOPROSTOL 0.2 MG TABLET PR ONE (09:50)
[2020-10-11] MEDS ORDERED: MISOPROSTOL 0.2 MG TABLET ONE (09:52)
[2020-10-11] MEDS ORDERED: MORPHINE SULFATE 10 MG/ML INJ ONE (10:12)
[2020-10-11] MEDS: MORPHINE SULFATE 10 MG/ML INJ IV PRN ×2 (10:15→10:34)
--- NOTE | 2020-10-11 11:17 | Delivery Summary ---
Del Sum A-C Datetime Report Generated by CPN: 10/11/2020 11:16 DELIVERY PERSONNEL DELIVERY PERSONNEL: [id number] Delivery Doctor:: Jeovanny Yen MD SHAPING MACHINE TENDER:: Joselito Campbell CRNA Comfort Station Attendant:: January Hernández RN Neonatal Nurse Practitioner:: ROMAINE Parra Nursery Nurse:: Tila Higgins RN Fish Hatchery Assistant/LIVESTOCK AGENT: Siobhan Coleman CST Fish Hatchery Assistant/LIVESTOCK AGENT: Alyssa Lazo, MANAGER PART MATERNAL INFORMATION Delivery Anesthesia: Spinal Medications After Delivery: Pitocin 30 Units in 500ml NS/D5W; Pitocin Drip 20 Units/1000ml NSS; Cytotec 1000mcg Per Rectum/Vagina Delivery QBL: 655 Maternal Complications: None LABOR SUMMARY EDC: 10/21/2020 00:00 No. Babies in Womb: 1 Attempted: No LABOR INFORMATION Reason for Induction: Not Applicable Oxytocin: N/A Steroids Given: None Reason Steroids Not Administered: Not Applicable MEMBRANES Rupture of Membranes: 10/11/2020 08:19 Length of Rupture (hr): 0.02 STAGES OF LABOR Stage 3 hr: 0 Stage 3 min: 1 CSECTION DELIVERY Primary Indication: Other CSection Urgency: Scheduled CSection Incidence: Primary Labor: N/A Elective: Elective CSection Incision: Lower Uterine Transverse BABY A INFORMATION Infant Delivery Date/Time: 10/11/2020 08:20 Method of Delivery: Born in Route : No : N/A Forceps: N/A Vacuum Extraction: N/A Shoulder Dystocia : No PRESENTATION/POSITION BABY A Presentation: Cephalic Cephalic Presentation: Vertex Breech Presentation: N/A PLACENTA INFORMATION BABY A Placenta Delivery Time : 10/11/2020 08:21 Placenta Method of Delivery: Manual Removal Placenta Status: Delivered SCORES BABY A Heart Rate 1 min: >100 bpm Resp Effort 1 min: Good Cry Reflex Irritability 1 min: Cough or Sneeze or Pulls Away Muscle Tone 1 min: Active Motion Color 1 min: Body [place], Extremities Blue Resuscitation Effort 1 min: Tactile Stimulation SCORE 1 MIN: 9 Heart Rate 5 min: >100 bpm Resp Effort 5 min: Good Cry Reflex Irritability 5 min: Cough or Sneeze or Pulls Away Muscle Tone 5 min: Active Motion Color 5 min: Body [place], Extremities Blue Resuscitation Effort 5 min: Tactile Stimulation SCORE 5 MIN: 9 INFANT INFORMATION BABY A Gestational Age at Delivery: 38.4 Gestational Status: Early Term- 37- 38.6 Weeks Outcome : Liveborn Infant Condition : Stable Sex: Female IDENTIFICATION BABY A Infant Verification Date/Time: 10/11/2020 08:24 ID Band Number: [id number] Mother's Name Verified: Yes RN Verifying Infant: CHRIS Lopez Additional Verifying Personnel: Pam Higgins RN WEIGHT/LENGTH BABY A Infant Birthweight (gm): 3170 Weight (lb): 7 Weight (oz): 0 Infant Length (in): 20.50 Infant Length (cm): 52.07 CORD INFORMATION BABY A No. Cord Vessels: 3 Nuchal Cord : N/A Cord Blood Taken: Yes-For Eval (Mom's Blood Type - or O+) ASSESSMENT BABY A Skin to Skin: No BABY B INFORMATION : N/A
--- NOTE | 2020-10-11 11:17 | Birth Certificate Data ---
Cert Data Datetime Report Generated by CPN: 10/11/2020 11:16 CERTIFICATE DATA Delivery Provider: Jeovanny Yen MD (10/11/2020 09:08:January Hernández RN) 47a. Care: Yes (08/20/2020 14:04:Raquel Luna RN) 47b. Date of First Visit: 04/30/2020 00:00 (08/20/2020 14:04:Raquel Luna RN) 48a. Number of Prev Live Births: 2 (08/20/2020 14:04:Raquel Luna RN) 48b. Now Livin (08/20/2020 14:04:Raquel Luna RN) 48c. Live Births Now : 0 (08/20/2020 14:04:QS system process) 48e. Losses: 2 (08/20/2020 14:04:Raquel Luna RN) RISK FACTORS IN THIS 49a. Diabetes: Yes (08/20/2020 14:04:Raquel Luna RN) Type of Diabetes: Type II - NIDDM (08/20/2020 14:04:Raquel Luna RN) 49b. Hypertension: No (08/20/2020 14:04:Raquel Luna RN) 49c. Previous Births: 2 (08/20/2020 14:04:Raquel Luna RN) 49d. Stillborns: No (08/20/2020 14:04:Raquel Luna RN) 49d. IUGR: No (08/20/2020 14:04:Raquel Luna RN) 49e. Infertility Treatment: No (08/20/2020 14:04:Raquel Luna RN) 49f. Previous Cesareans: 0 (08/20/2020 14:04:Raquel Luna RN) Mother's Height 50b. Height Inches: 63 (10/11/2020 06:03:QS system process) Mother's Weight 51b. Weight at Delivery (lbs): 218 (10/11/2020 06:03:QS system process) Infections Present/Treated 53a. Gonorrhea: No (08/20/2020 14:04:Raquel Luna RN) 53b. Syphilis: No (08/20/2020 14:04:Raquel Luna RN) 53c. Chlamydia: No (08/20/2020 14:04:Raquel Luna RN) 53d. Hepatitis B: No (08/20/2020 14:04:Raquel Luna RN) Results this Hospital Visit: Negative (08/20/2020 14:04:Raquel Luna RN) 53e. Hepatitis C: Negative (08/20/2020 14:04:Raquel Luna RN) 53h. Mother Tested for HBsAG: Yes (08/20/2020 14:04:Raquel Luna RN) 53i. Date Tested: 04/30/2020 00:00 (08/20/2020 14:04:Raquel Luna RN) 53j. Test Result: Negative (08/20/2020 14:04:Raquel Luna RN) Obstetric Procedures 54a, b, c. Obstetric Procedures: Ultrasound; NST (08/20/2020 14:04:Raquel Luna RN) Cigarette Smoking Cigarette Smoking: Never Smoker. [id number] (08/20/2020 14:04:Raquel Luna RN) 55a. 3 Months Before Preg - Ci (08/20/2020 14:04:Raquel Luna RN) 55a. Packs: 0 (08/20/2020 14:04:Raquel Luna RN) 55b. 1st Trimester of Preg- Ci (08/20/2020 14:04:Raquel Luna RN) 55b. Packs: 0 (08/20/2020 14:04:Raquel Luna RN) 55c. 2nd Trimester of Preg- Ci (08/20/2020 14:04:Raquel Luna RN) 55c. Packs: 0 (08/20/2020 14:04:Raquel Luna RN) 55d. 3rd Trimester of Preg- Ci (08/20/2020 14:04:Raquel Luna RN) 55d. Packs: 0 (08/20/2020 14:04:Raquel Luna RN) Onset of Labor 56a. PROM >12 Hrs: 0.02 (08/20/2020 14:04:QS system process) 57a. Induction of Labor: N/A (08/20/2020 14:04:January Hernández RN) 57c. Non-Vertex Presentation A: Vertex (08/20/2020 14:04:January Hernández RN) 57d. Steroids - Lung Mat: None (08/20/2020 14:04:January Hernández RN) 57d. Steroids - Lung Mat: Not Applicable (08/20/2020 14:04:January Hernández RN) 57f. Mat [place] or Temp >100.4: 97.5 (08/20/2020 14:04:January Hernández RN) 57h. Intolerance of Labor: Other (08/20/2020 14:04:January Hernández, CHRIS) Method of Delivery 58a. Forceps - Unsuccessful A: N/A (08/20/2020 14:04:January Hernández RN) 58b. Vacuum - Unsuccessful A: N/A (08/20/2020 14:04:January Hernández RN) 58c. Presentation at 58c. Presentation at - A : Vertex (08/20/2020 14:04:January Hernández RN) 58c. Presentation at - A : N/A (08/20/2020 14:04:January Hernández, CHRIS) 58c. Presentation at - A : Cephalic (08/20/2020 14:04:January Hernández RN) Final Route and Method of Del 58d. Baby A Route/Delivery: (08/20/2020 14:04:January Hernández RN) 58e. Trial of Labor Attempted: No (08/20/2020 14:04:January Hernández RN) 58e. Trial of Labor Attempted A: N/A (08/20/2020 14:04:January Hernández RN) 58e. Trial of Labor Attempted B: N/A (08/20/2020 14:04:January Hernández RN) Birthweight Baby A: 3170 (08/20/2020 14:04:January Hernández RN) 60a. Pounds : 7 (08/20/2020 14:04:QS system process) 60b. Ounces: 0 (08/20/2020 14:04:QS system process) 61. GA at Delivery Baby A: 38.4 (08/20/2020 14:04:January Hernández RN) : Early Term- 37- 38.6 Weeks (08/20/2020 14:04:QS system process) 62a. 5 Minute Baby A: 9 (08/20/2020 14:04:QS system process)
[2020-10-11] MEDS: DOCUSATE SODIUM 100 MG CAPSULE PO SCH ×2 (11:39→18:07)
[2020-10-11] MEDS: PRENATAL VITAMIN W DHA CAPSULE PO SCH (11:39)
[2020-10-11] MEDS ORDERED: ACETAMINOPHEN 325 MG TABLET PO PRN (12:00)
[2020-10-11] MEDS: OXYCODONE-ACETAMINOPHEN 5-325 MG TABLET PO PRN ×2 (12:28→18:06)
[2020-10-12] MEDS: OXYCODONE-ACETAMINOPHEN 5-325 MG TABLET PO PRN ×3 (01:29→17:51)
[2020-10-12 07:16] LABS: HEMATOCRIT 27.8 % (36.0-47.0); HEMOGLOBIN 9.4 g/dL (12.0-15.5); MEAN CORPUSCULAR HEMOGLOBIN 25.8 pg (27.0-33.4); MEAN CORPUSCULAR HGB CONC 33.6 g/dL (32.0-36.0); MEAN CORPUSCULAR VOLUME 77 fl (80-97); PLATELET COUNT 157 10^3/uL (150-450); RED BLOOD COUNT 3.63 10^6/uL (3.72-5.28); RED CELL DISTRIBUTION WIDTH 14.7 % (11.5-14.0); WHITE BLOOD COUNT 12.4 10^3/uL (4.0-10.5)
[2020-10-12] MEDS: DOCUSATE SODIUM 100 MG CAPSULE PO SCH ×2 (09:30→17:50)
[2020-10-12] MEDS: PRENATAL VITAMIN W DHA CAPSULE PO SCH (09:30)
[2020-10-12] MEDS: IBUPROFEN 800 MG TABLET PO SCH ×2 (12:00→17:50)
--- NOTE | 2020-10-12 15:59 | PDOC PROGRESS REPORT ---
Subjective-OB Progress Note for:: 10/12/20 Subjective: reports bleeding slowing, pain controlled with current meds. denies needs Physical Exam (OB) Vital Signs: Temp Pulse Resp BP Pulse Ox 98.3 F 91 18 127/60 H 100 10/12/20 15:25 10/12/20 15:25 10/12/20 15:25 10/12/20 15:25 10/12/20 15:25 Intake & Output 10/11/20 10/12/20 10/13/20 06:59 06:59 06:59 Intake Total 800 Output Total 1525 Balance -725 Weight 99.34 kg - Dressing Removed: Yes Incision: Well Approximated Closure Type: Surgical Glue - Maternal Morbidity 59. Maternal Morbidity (serious complications experinced by the mother associated with labor and delivery: None of the above - Abdomen Description: Tender, Soft, Round Hernia Present: No Fundal Description: Firm, Midline Fundal Height: u/u - u/2 - Abdominal Distension: No distension - Extremities Lower extremities: Xu's sign - neg Calf: Normal, Nontender Objective-Diagnostic Laboratory: 10/12/20 06:52 10/09/20 10/12/20 10/12/20 11:00 06:52 06:52 WBC 12.4 H RBC 3.63 L Hgb 9.4 L Hct 27.8 L MCV 77 L MCH 25.8 L MCHC 33.6 RDW 14.7 H Plt Count 157 Blood Type A NEGATIVE A NEGATIVE Antibody Screen POSITIVE Assessment and Plan(PN) - Assessment and Plan (1) Fibroids Is this a current diagnosis for this admission?: Yes (2) S/P primary low transverse Is this a current diagnosis for this admission?: Yes (3) Diabetes in Is this a current diagnosis for this admission?: Yes - Time Spent with Patient Time with patient: Less than 15 minutes - Disposition Anticipated Discharge Disposition: Home, Self Care Anticipated Discharge Timeframe: within 24 hours
[2020-10-13] MEDS: IBUPROFEN 800 MG TABLET PO SCH ×2 (00:18→06:47)
[2020-10-13] MEDS: PRENATAL VITAMIN W DHA CAPSULE PO SCH (09:33)
[2020-10-13] MEDS: DOCUSATE SODIUM 100 MG CAPSULE PO SCH (09:33)
[2020-10-13] MEDS: OXYCODONE-ACETAMINOPHEN 5-325 MG TABLET PO PRN (09:34)
--- NOTE | 2020-10-13 12:01 | PDOC DISCHARGE SUMMARY ---
Impression - Admit/DC Date/PCP Admission Date/Primary Care Provider: 10/11/20 05:08 EV ORTEGA MD Discharge Date: 10/13/20 - Discharge Diagnosis (1) Fibroids Is this a current diagnosis for this admission?: Yes (2) S/P primary low transverse Is this a current diagnosis for this admission?: Yes (3) Diabetes in Is this a current diagnosis for this admission?: Yes - Additional Information Discharge Diet: Regular Discharge Activity: Balance Activity w/Rest, No Lifting Over 10 Pounds, No Lifting/Push/Pulling, Pelvic Rest, No tub bath Referrals: EV ORTEGA MD [Primary Care Provider] - Prescriptions: Ibuprofen [Motrin 800 mg Tablet] 800 mg PO Q8HP PRN #90 tablet PRN Reason: Oxycodone HCl/Acetaminophen [Percocet 5-325 mg Tablet] 1 tab PO Q4HP PRN #20 tablet PRN Reason: Home Medications: Metformin HCl [Glucophage 500 mg Tablet] 1,000 mg PO BIDACBS tablet 08/23/20 Ibuprofen [Motrin 800 mg Tablet] 800 mg PO Q8HP PRN #90 tablet 10/13/20 Oxycodone HCl/Acetaminophen [Percocet 5-325 mg Tablet] 1 tab PO Q4HP PRN #20 tablet 10/13/20 Hospital Course 59. Maternal Morbidity (serious complications experinced by the mother associated with labor and delivery: None of the above Results Laboratory Results: WBC 12.4 10^3/uL (4.0-10.5) H 10/12/20 06:52 RBC 3.63 10^6/uL (3.72-5.28) L 10/12/20 06:52 Hgb 9.4 g/dL (12.0-15.5) L 10/12/20 06:52 Hct 27.8 % (36.0-47.0) L 10/12/20 06:52 MCV 77 fl (80-97) L 10/12/20 06:52 MCH 25.8 pg (27.0-33.4) L 10/12/20 06:52 MCHC 33.6 g/dL (32.0-36.0) 10/12/20 06:52 RDW 14.7 % (11.5-14.0) H 10/12/20 06:52 Plt Count 157 10^3/uL (150-450) 10/12/20 06:52 POC Glucose 81 mg/dL (70-110) 10/11/20 06:01 Blood Type A NEGATIVE 10/12/20 06:52 Antibody Screen POSITIVE 10/09/20 11:00 Antibody Identification RHOGAM INDUCED ANTI-D 10/09/20 11:00 Screen NEGATIVE 10/12/20 06:52 Plan Plan of Treatment: follow up in one week for incision check
[2020-10-13 15:33] VITALS: BP 116/76
== END 2020-10-13 16:09 | disposition home or self-care (01) | DRG 788 ==
LOC: 2S 05:08
PROVIDERS: ADMIT Obstetrics & Gynecology Gynecology; ATTEND Obstetrics & Gynecology Gynecology
PROC: 10D00Z1 Extraction of Products of Conception, Low, Open Approach (ICD-10-PCS; principal; 2020-10-11)
PROC: 3E0234Z Introduction of Serum, Toxoid and Vaccine into Muscle, Percutaneous Approach (ICD-10-PCS; 2020-10-13)
DX: O24.12 Pre-existing type 2 diabetes mellitus, in childbirth (principal); O34.13 Maternal care for benign tumor of corpus uteri, third trimester; D25.9 Leiomyoma of uterus, unspecified; E11.9 Type 2 diabetes mellitus without complications; O26.893 Other specified pregnancy related conditions, third trimester; Z67.11 Type A blood, Rh negative; Z3A.38 38 weeks gestation of pregnancy; Z37.0 Single live birth
CPT/HCPCS: 1961; 36415; 59025; 82962; 85027; 85461; 86850; 86870; 86900; 86901; 94760; 94799; J0131; J0690; J2250; J2270; J2370; J2405; J2590; J2790; J3490; J7120